=== PATIENT | male | born 1955 | race Caucasian/White ===

== ENCOUNTER 2023-06-20 14:19 | Outpatient (CLI) | payer MEDICARE, OTHER, SELFPAY ==
[2023-06-20 14:30] LABS: Basophils Absolute Auto 0.1 K/mm3 (0.0-0.1); Basophils Percent Auto 0.7 % (0.2-1.2); Eosinophils Absolute Auto 0.4 K/mm3 (0-0.3); Hematocrit 50.5 % (42.0-52.0); Immature Granulocyte Absolute 0.04 K/mm3 (0.00-0.031); Immature Granulocyte Percent A 0.5 % (0-0.5); Lymphocytes Absolute Auto 1.75 K/mm3 (0.9-3.2); Lymphocytes Percent Auto 20.1 % (18.3-44.2); Mean Corpuscular HGB Conc 33.7 g/dl (32-36); Mean Corpuscular Hemoglobin 31.7 pg (26-34); Mean Corpuscular Volume 94.2 fl (80-100); Mean Platelet Volume 8.6 fl (7.4-10.4); Monocytes Absolute Auto 0.8 K/mm3 (0.1-0.6); Monocytes Percent Auto 8.7 % (2.6-8.5); Neutrophils Absolute Auto 5.7 K/mm3 (1.3-6.7); Platelet Count Result 300 k/mm3 (150-375); Red Blood Count 5.36 M/mm3 (4.6-6.20); Red Cell Distribution Width 13.3 % (11.5-14.5); White Blood Count 8.7 K/mm3 (4.5-10.0)
== END 2023-06-20 14:20 | disposition home or self-care (01) ==
PROVIDERS: Visit Provider Internal Medicine Hematology & Oncology
DX: D75.1 Secondary polycythemia (principal)
CPT/HCPCS: 36415; 85025

== ENCOUNTER 2024-04-02 14:21 | Outpatient (CLI) | payer MEDICARE, OTHER, SELFPAY ==
[2024-04-02 14:34] LABS: Basophils Absolute Auto 0.1 K/mm3 (0.0-0.1); Basophils Percent Auto 0.9 % (0.2-1.2); Eosinophils Absolute Auto 0.3 K/mm3 (0-0.3); Eosinophils Percent Auto 4.1 % (0-4.4); Hematocrit 49.3 % (42.0-52.0); Hemoglobin 16.5 g/dL (14.0-18.0); Immature Granulocyte Absolute 0.03 K/mm3 (0.00-0.031); Immature Granulocyte Percent A 0.4 % (0-0.5); Lymphocytes Absolute Auto 1.84 K/mm3 (0.9-3.2); Lymphocytes Percent Auto 23.3 % (18.3-44.2); Mean Corpuscular HGB Conc 33.5 g/dl (32-36); Mean Corpuscular Hemoglobin 31.7 pg (26-34); Mean Corpuscular Volume 94.6 fl (80-100); Mean Platelet Volume 8.7 fl (7.4-10.4); Monocytes Absolute Auto 0.6 K/mm3 (0.1-0.6); Monocytes Percent Auto 7.2 % (2.6-8.5); Neutrophils Absolute Auto 5.1 K/mm3 (1.3-6.7); Neutrophils Percent Auto 64.1 % (45.5-73.1); Platelet Count Result 271 k/mm3 (150-375); Red Blood Count 5.21 M/mm3 (4.6-6.20); Red Cell Distribution Width 13.6 % (11.5-14.5); White Blood Count 7.9 K/mm3 (4.5-10.0)
== END 2024-04-02 14:22 | disposition home or self-care (01) ==
LOC: ANHLAB 14:25
PROVIDERS: Visit Provider Internal Medicine Hematology & Oncology
DX: D75.1 Secondary polycythemia (principal)
CPT/HCPCS: 36415; 85025

== ENCOUNTER 2024-10-06 14:00 | Outpatient (CLI) | payer MEDICARE, OTHER, SELFPAY ==
[2024-10-06 14:41] LABS: Basophils Absolute Auto 0.1 K/mm3 (0.0-0.1); Basophils Percent Auto 0.7 % (0.2-1.2); Eosinophils Absolute Auto 0.3 K/mm3 (0-0.3); Hematocrit 51.6 % (42.0-52.0); Immature Granulocyte Absolute 0.03 K/mm3 (0.00-0.031); Immature Granulocyte Percent A 0.4 % (0-0.5); Lymphocytes Absolute Auto 1.76 K/mm3 (0.9-3.2); Mean Corpuscular HGB Conc 32.9 g/dl (32-36); Mean Corpuscular Hemoglobin 31.1 pg (26-34); Mean Corpuscular Volume 94.3 fl (80-100); Mean Platelet Volume 8.5 fl (7.4-10.4); Monocytes Absolute Auto 0.7 K/mm3 (0.1-0.6); Monocytes Percent Auto 8.3 % (2.6-8.5); Neutrophils Absolute Auto 5.6 K/mm3 (1.3-6.7); Neutrophils Percent Auto 66.6 % (45.5-73.1); Platelet Count Result 257 k/mm3 (150-375); Red Blood Count 5.47 M/mm3 (4.6-6.20); Red Cell Distribution Width 13.8 % (11.5-14.5); White Blood Count 8.4 K/mm3 (4.5-10.0)
== END 2024-10-06 14:01 | disposition home or self-care (01) ==
LOC: ANHLAB 14:01
PROVIDERS: Visit Provider Internal Medicine Hematology & Oncology
DX: D75.1 Secondary polycythemia (principal)
CPT/HCPCS: 36415; 85025

== ENCOUNTER 2025-01-06 14:51 | Outpatient (CLI) | payer MEDICARE, OTHER, SELFPAY ==
[2025-01-06 15:01] LABS: Hemoglobin 17.3 g/dL (14.0-18.0); Mean Corpuscular HGB Conc 33.3 g/dl (32-36); Mean Corpuscular Hemoglobin 31.3 pg (26-34); Mean Corpuscular Volume 94.2 fl (80-100); Mean Platelet Volume 8.5 fl (7.4-10.4); Platelet Count Result 261 k/mm3 (150-375); Red Blood Count 5.52 M/mm3 (4.6-6.20); Red Cell Distribution Width 13.7 % (11.5-14.5); White Blood Count 7.4 K/mm3 (4.5-10.0)
--- OUTSIDE RECORDS SUMMARY | 2025-01-06 15:59 | XMS_ITS | Continuity of Care Document ---
Author Name [facility] Organization [facility] Care Team Providers Care Solderer Furnace Name Role Phone [facility] Unavailable Unavailable Problems Combined list of problems from [facility] and [facility] facilities. It does not include entries that were removed or entered in error. Problem Status Onset Date Problem Type Date of Resolution Comments Source ACCRETIONS ON TEETH Active Condition [facility] Fitting and Adjustment of Orthopedic Devices (ICD-9-CM V53.7) Active Condition [facility] Sensorineural hearing loss of bilateral ears Active Condition [facility] Diagnosis: ICD-10-CM H91.93 Unspecified hearing loss, bilateral Active Diagnosis [facility] Diagnosis: ICD-10-CM H90.3 Sensorineural hearing loss, bilateral Active Diagnosis [facility] Medications Combined list of outpatient medications from [facility] and [facility] facilities.Medications provided include 1) outpatient medications from the last 15 months, and 2) patient-reported medications. Medication Details Route Status Patient Instructions Prescription Expires Prescription Number Last Dispense Date Ordering Provider Order Date Order Qty Source alcohol prep pad [100EA] See Instruct mesha, # 200 EA, 3 total refill(s ), Hard Stop Ordered 10/15/2025 5 2024 200.0 Ambulat ory Pharmac y aspirin EC 81 mg tablet 81 mg, Oral, Daily, # 90 EA, 1 total refill(s ), Hard Stop Oral (given by mouth) Discont inued 06/02/2024 4 2023 90.0 Ambulat ory Pharmac y aspirin EC 81 mg tablet See Instruct mesha, # 90 EA, 1 total refill(s ), Hard Stop Ordered 10/29/2025 5 2024 90.0 Ambulat ory Pharmac y aspirin EC 81 mg tablet 81 mg, Oral, Daily, # 90 EA, 1 total refill(s ), Hard Stop Oral (given by mouth) Ordered 06/02/2025 4 2023 90.0 Ambulat ory Pharmac y aspirin EC 81 mg tablet 81 mg, Oral, Daily, # 90 EA, 1 total refill(s ), Hard Stop Oral (given by mouth) Discont inued 06/02/2024 3 2023 90.0 Ambulat ory Pharmac y cetirizine 10 mg tablet See Instruct ions, # 90 EA, 3 total refill(s ), Hard Stop Complet ed 12/12/2024 4 2024 90.0 Ambulat ory Pharmac y cetirizine 10 mg tablet See Instruct ions, # 90 EA, 3 total refill(s ), Hard Stop Ordered 10/29/2025 5 2024 90.0 Ambulat ory Pharmac y cetirizine 10 mg tablet 10 mg, Oral, Daily, # 90 EA, 1 total refill(s ), Hard Stop Oral (given by mouth) Complet ed 06/06/2024 3 2023 90.0 Ambulat ory Pharmac y Cipro HC 0.2%-1% ear drops (suspension ) [10mL] See Instruct ions, # 10 mL, 1 total refill(s ), Acute Complet ed 02/07/2024 3 2023 10.0 Ambulat ory Pharmac y citalopram 20 mg tablet See Instruct ions, # 90 EA, 3 total refill(s ), Acute Complet ed 02/07/2024 4 2023 90.0 Ambulat ory Pharmac y citalopram 20 mg tablet See Instruct ions, # 90 EA, 3 total refill(s ), Hard Stop Ordered 10/29/2025 5 2024 90.0 Ambulat ory Pharmac y citalopram 20 mg tablet See Instruct ions, # 90 EA, 3 total refill(s ), Hard Stop Complet ed 12/12/2024 4 2024 90.0 Ambulat ory Pharmac y dicyclomine 10 mg capsule 10 mg, Oral, BID, # 180 EA, 3 total refill(s ), Hard Stop Oral (given by mouth) Ordered 02/12/2025 5 2024 180.0 Ambulat ory Pharmac y dicyclomine 10 mg capsule See Instruct ions, # 180 EA, 1 total refill(s ), Acute Complet ed 10/04/2023 3 2023 180.0 Ambulat ory Pharmac y dicyclomine 10 mg capsule See Instruct ions, 0, # 180 EA, 1 total refill(s ), Hard Stop Complet ed 06/06/2024 4 2023 180.0 Ambulat ory Pharmac y doxycycline hyclate 100 mg capsule See Instruct ions, Oral, # 28 EA, 0 total refill(s ), Hard Stop Oral (given by mouth) Complet ed 11/13/2024 5 2024 28.0 Ambulat ory Pharmac y fenofibrate 54 mg tablet See Instruct ions, # 90 EA, 2 total refill(s ), Acute Complet ed 10/04/2023 3 2023 90.0 Ambulat ory Pharmac y fenofibrate 54 mg tablet See Instruct ions, # 90 EA, 1 total refill(s ), Hard Stop Ordered 10/29/2025 5 2024 90.0 Ambulat ory Pharmac y fenofibrate 54 mg tablet 54 mg, Oral, Daily, # 90 EA, 1 total refill(s ), Hard Stop Oral (given by mouth) Ordered 06/02/2025 4 2023 90.0 Ambulat ory Pharmac y fenofibrate 54 mg tablet See Instruct ions, # 90 EA, 1 total refill(s ), Hard Stop Discont inued 06/02/2024 4 2023 90.0 Ambulat ory Pharmac y ferrous sulfate 325 mg tablet See Instruct ions, # 90 EA, 3 total refill(s ), Hard Stop Complet ed 12/12/2024 4 2024 90.0 Ambulat ory Pharmac y ferrous sulfate 325 mg tablet See Instruct ions, # 90 EA, 3 total refill(s ), Acute Complet ed 12/17/2023 3 2023 90.0 Ambulat ory Pharmac y ferrous sulfate 325 mg tablet See Instruct ions, # 90 EA, 0 total refill(s ), Soft Stop Ordered 5 2024 90.0 Ambulat ory Pharmac y Freestyle 28g lancets [100EA] See Instruct ions, # 200 EA, 3 total refill(s ), Hard Stop Ordered 10/15/2025 5 2024 200.0 Ambulat ory Pharmac y Freestyle [place] Lite Monitor See Instruct ions, # 1 EA, 0 total refill(s ), Hard Stop Ordered 10/15/2025 5 2024 1.0 Ambulat ory Pharmac y freestyle lite (glucose) test strip [50EA] See Instruct ions, # 200 EA, 3 total refill(s ), Hard Stop Ordered 10/15/2025 5 2024 200.0 Ambulat ory Pharmac y gabapentin 300 mg capsule 300 mg, 0, # 90 EA, 2 total refill(s ), Hard Stop Discont inued 03/18/2024 4 2023 90.0 Ambulat ory Pharmac y gabapentin 300 mg capsule See Instruct ions, Oral, 0, # 180 EA, 3 total refill(s ), Hard Stop Oral (given by mouth) Ordered 02/12/2025 5 2024 180.0 Ambulat ory Pharmac y gabapentin 300 mg capsule See Instruct ions, # 90 EA, 2 total refill(s ), Acute Complet ed 12/17/2023 3 2023 90.0 Ambulat ory Pharmac y glucose test strip (freestyle lite) USE NEEDED TO CHECK BLOOD SUGAR, # 100 EA, 3 total refill(s ), Acute Complet ed 10/04/2023 3 2023 100.0 Ambulat ory Pharmac y hydrochloro thiazide-lo sartan 25 mg-100 mg tablet See Instruct ions, # 90 EA, 3 total refill(s ), Hard Stop Complet ed 12/03/2024 4 2024 90.0 Ambulat ory Pharmac y hydrochloro thiazide-lo sartan 25 mg-100 mg tablet See Instruct ions, # 90 EA, 3 total refill(s ), Acute Complet ed 10/04/2023 4 2023 90.0 Ambulat ory Pharmac y hydrochloro thiazide-lo sartan 25 mg-100 mg tablet See Instruct ions, # 90 EA, 3 total refill(s ), Hard Stop Ordered 10/29/2025 5 2024 90.0 Ambulat ory Pharmac y hydrOXYzine hydrochlori de 25 mg tablet See Instruct ions, # 30 EA, 3 total refill(s ), Hard Stop Ordered 10/29/2025 5 2024 30.0 Ambulat ory Pharmac y isosorbide mononitrate ER 30 mg/24 hour tablet 30 mg, Oral, Daily, # 90 EA, 0 total refill(s ), Soft Stop Oral (given by mouth) Ordered 5 2024 90.0 Ambulat ory Pharmac y Jatenzo 237 mg capsule 237 mg, Oral, BID, # 180 EA, 1 total refill(s ), Hard Stop Oral (given by mouth) Discont inued 09/05/2024 4 2023 180.0 Ambulat ory Pharmac y Jatenzo 237 mg capsule 237 mg, Oral, BID, # 180 EA, 1 total refill(s ), Hard Stop Oral (given by mouth) Discont inued 12/18/2024 5 2024 180.0 Ambulat ory Pharmac y Jatenzo 237 mg capsule 237 mg, Oral, BID, # 180 EA, 0 total refill(s ), Hard Stop Oral (given by mouth) Discont inued 12/28/2023 4 2023 180.0 Ambulat ory Pharmac y Jatenzo 237 mg capsule 237 mg, Oral, BID, # 60 EA, 2 total refill(s ), Hard Stop Oral (given by mouth) Discont inued 03/25/2024 4 2023 60.0 Ambulat ory Pharmac y ketoconazol e 2% cream [60g] See Instruct ions, # 60 g, 11 total refill(s ), Hard Stop Complet ed 10/10/2024 4 2024 60.0 Ambulat ory Pharmac y levothyroxi ne (Synthroid) 100 mcg tablet See Instruct ions, # 90 EA, 3 total refill(s ), Hard Stop, WADE Ordered 10/14/2025 5 2024 90.0 Ambulat ory Pharmac y levothyroxi ne (Synthroid) 100 mcg tablet See Instruct ions, # 90 EA, 3 total refill(s ), Hard Stop, WADE Discont inued 10/15/2024 5 2024 90.0 Ambulat ory Pharmac y levothyroxi ne (Synthroid) 100 mcg tablet See dose instruct ions in comments , # 90 EA, 3 total refill(s ), Acute Complet ed 10/04/2023 4 2023 90.0 Ambulat ory Pharmac y meclizine 25 mg chew tablet See Instruct ions, # 90 EA, 0 total refill(s ), Hard Stop Complet ed 10/01/2024 4 2024 90.0 Ambulat ory Pharmac y meclizine 25 mg chew tablet See Instruct ions, # 30 EA, 5 total refill(s ), Hard Stop Ordered 02/12/2025 4 2023 30.0 Ambulat ory Pharmac y metFORMIN XR 500 mg/24 hour tablet See Instruct ions, # 180 EA, 1 total refill(s ), Acute Complet ed 10/04/2023 3 2023 180.0 Ambulat ory Pharmac y metFORMIN XR 500 mg/24 hour tablet 500 mg, Oral, BID, # 180 EA, 1 total refill(s ), Hard Stop Oral (given by mouth) Discont inued 06/24/2024 4 2023 180.0 Ambulat ory Pharmac y metFORMIN XR 500 mg/24 hour tablet 500 mg, Oral, BID, # 180 EA, 1 total refill(s ), Hard Stop Oral (given by mouth) Ordered 06/24/2025 4 2023 180.0 Ambulat ory Pharmac y metFORMIN XR 500 mg/24 hour tablet 500 mg, Oral, BID, # 180 EA, 1 total refill(s ), Hard Stop Oral (given by mouth) Complet ed 06/06/2024 4 2023 180.0 Ambulat ory Pharmac y metoprolol succinate 50 mg oral tablet, extended release TAKE ONE TABLET DAILY, # 90 EA, 0 total refill(s ), Acute Complet ed 03/05/20232022 90.0 Ambulat ory Pharmac y metoprolol succinate ER 50 mg/24 hour tablet 50 mg, Oral, Daily, # 90 EA, 3 total refill(s ), Hard Stop Oral (given by mouth) Ordered 02/12/2025 5 2024 90.0 Ambulat ory Pharmac y metoprolol succinate ER 50 mg/24 hour tablet See Instruct ions, # 90 EA, 3 total refill(s ), Hard Stop Complet ed 03/13/2024 4 2023 90.0 Ambulat ory Pharmac y metoprolol succinate ER 50 mg/24 hour tablet 50 mg, Oral, Daily, # 90 EA, 1 total refill(s ), Hard Stop Oral (given by mouth) Complet ed 06/06/2024 4 2023 90.0 Ambulat ory Pharmac y Mounjaro 10 mg/0.5 mL inj-pen [4pens/2mL] See Instruct ions, # 2 mL, 5 total refill(s ), Hard Stop, WADE Ordered 10/14/2025 5 2024 2.0 Ambulat ory Pharmac y Mounjaro 5 mg/0.5 mL inj-pen [4pens/2mL] See Instruct ions, # 2 mL, 5 total refill(s ), Hard Stop Discont inued 09/05/2024 4 2023 2.0 Ambulat ory Pharmac y Mounjaro 5 mg/0.5 mL inj-pen [4pens/2mL] See Instruct ions, # 2 mL, 5 total refill(s ), Hard Stop Discont inued 10/15/2024 5 2024 2.0 Ambulat ory Pharmac y nystatin 100,000 units/g topical powder APPLY TOPICALL Y FOUR TIMES A DAY DIRECTED , # 60 g, 11 total refill(s ), Acute Complet ed 02/07/2024 3 2023 60.0 Ambulat ory Pharmac y oxymetazoli ne 0.05% nasal spray [30mL] See Instruct ions, # 30 mL, 0 total refill(s ), Hard Stop Complet ed 11/07/2024 5 2024 30.0 Ambulat ory Pharmac y pantoprazol e EC 40 mg tablet See Instruct ions, # 90 EA, 3 total refill(s ), Hard Stop Complet ed 08/12/2024 4 2023 90.0 Ambulat ory Pharmac y pantoprazol e EC 40 mg tablet See Instruct ions, # 180 EA, 1 total refill(s ), Acute Complet ed 11/02/2023 3 2023 180.0 Ambulat ory Pharmac y pantoprazol e EC 40 mg tablet 40 mg, Oral, BID, # 180 EA, 3 total refill(s ), Hard Stop Oral (given by mouth) Ordered 10/29/2025 5 2024 180.0 Ambulat ory Pharmac y pantoprazol e EC 40 mg tablet 40 mg, Oral, BID, # 180 EA, 3 total refill(s ), Hard Stop Oral (given by mouth) Discont inued 12/18/2024 4 2024 180.0 Ambulat ory Pharmac y rOPINIRole 2 mg tablet See Instruct ions, # 90 EA, 1 total refill(s ), Acute Complet ed 10/04/2023 3 2023 90.0 Ambulat ory Pharmac y rOPINIRole 2 mg tablet See Instruct ions, # 90 EA, 1 total refill(s ), Hard Stop Complet ed 12/12/20242024 90.0 Ambulat ory Pharmac y rOPINIRole 2 mg tablet See Instruct ions, # 90 EA, 3 total refill(s ), Hard Stop Ordered 02/12/2025 5 2024 90.0 Ambulat ory Pharmac y rOPINIRole 2 mg tablet See Instruct ions, 0, # 90 EA, 1 total refill(s ), Hard Stop Complet ed 06/06/2024 4 2023 90.0 Ambulat ory Pharmac y simvastatin 20 mg tablet See Instruct ions, # 90 EA, 2 total refill(s ), Hard Stop Complet ed 12/12/2024 4 2024 90.0 Ambulat ory Pharmac y simvastatin 20 mg tablet See Instruct ions, # 90 EA, 2 total refill(s ), Hard Stop Complet ed 06/10/2024 4 2023 90.0 Ambulat ory Pharmac y simvastatin 20 mg tablet See Instruct ions, # 90 EA, 2 total refill(s ), Hard Stop Ordered 10/29/2025 5 2024 90.0 Ambulat ory Pharmac y sotalol 80 mg tablet See Instruct ions, # 180 EA, 3 total refill(s ), Hard Stop Complet ed 03/13/2024 4 2023 180.0 Ambulat ory Pharmac y sotalol 80 mg tablet 80 mg, Oral, BID, # 180 EA, 3 total refill(s ), Hard Stop Oral (given by mouth) Ordered 03/20/2025 5 2024 180.0 Ambulat ory Pharmac y testosteron e 237 mg capsule 237 mg, Oral, BID, # 180 EA, 1 total refill(s ), Soft Stop Oral (given by mouth) Ordered 5 2024 180.0 Ambulat ory Pharmac y triamcinolo ne 0.1% cream [15g] See Instruct ions, # 90 g, 3 total refill(s ), Hard Stop Complet ed 10/10/2024 4 2024 90.0 Ambulat ory Pharmac y triamcinolo ne 0.5% cream [15g] See Instruct ions, # 90 g, 3 total refill(s ), Hard Stop Complet ed 10/10/2024 4 2024 90.0 Ambulat ory Pharmac y Trulicity Pen 1.5 mg/0.5 mL [4EA=2mL] See Instruct ions, # 2 mL, 5 total refill(s ), Hard Stop Complet ed 03/19/2024 3 2023 2.0 Ambulat ory Pharmac y Trulicity Pen 1.5 mg/0.5 mL [4EA=2mL] See Instruct ions, # 2 mL, 3 total refill(s ), Hard Stop Notes: refriger ate Discont inued 09/05/2024 4 2023 2.0 Ambulat ory Pharmac y Trulicity Pen 1.5 mg/0.5 mL [4EA=2mL] See Instruct ions, # 6 mL, 1 total refill(s ), Hard Stop Complet ed 04/02/2024 4 2023 6.0 Ambulat ory Pharmac y Allergies, Adverse Reactions, Alerts Combined list of allergies from [facility] and [facility] facilities. It does not include entries that were removed or entered in error. Substance Category Reaction Severity Reaction type Status Date Reported Comments Source erythromycin Propensity to adverse reactions to drug Unknown Active Reaction( s): Unknown; Note: RASH Unknown Organizat ion penicillins Propensity to adverse reactions to drug Unknown Active Reaction( s): Unknown; Note: RASH Unknown Organizat ion Surgical Tape Allergy to substance Urticaria (Hives) Severe Active Ambulator y Pharmacy Immunizations Combined list of available immunizations from the Department of Defense and Veterans Affairs facilities. 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 Status Comments Source COVID Vaccine Pfizer 2020 Shay robledo Arm [id number] PFIZER complet ed COVID Vaccine Pfizer 08/12/21 Given Ambulat ory Pharmac y zoster vaccine, inactivated 2020 zzLef t Arm [id number] GlaxoSmithKli ne complet ed zoster vaccine, inactivat ed 10/14/20 Given Ambulat ory Pharmac y influenza, injectable, quadrivalent- pf 2020 zzLef t Arm [id number] 150 Seqirus complet ed influenza , injectabl e, quadrival ent-pf 10/14/20 Given Ambulat ory Pharmac y zoster vaccine, inactivated 2019 zzLef t Arm [id number] GlaxoSmithKli [employer] complet ed zoster vaccine, inactivat ed 12/12/19 Given Ambulat ory Pharmac y influenza, injectable, quadrivalent- pf 2018 zzLef t Arm [id number] 150 Seqirus complet ed influenza , injectabl e, quadrival ent-pf 09/01/19 Given Ambulat ory Pharmac y influenza, injectable, quadrivalent- pf 2017 zzLef t Arm [id number] 150 [employer]irus complet ed influenza , injectabl e, quadrival ent-pf 06/29/18 Given Ambulat ory Pharmac y tetanus, diphtheria, acellular pertu is 2017 zzLef t Arm [id number] GlaxoSmithK[employer] complet ed tetanus, diphtheri a, acellular pertussis 12/03/17 Given Ambulat ory Pharmac y zoster vaccine live 2015 zzLef t Arm [id number] [employer] complet ed zoster vaccine live 08/02/16 Given Ambulat ory Pharmac y influenza, seasonal, injectable-pf 2015 zzLef t Arm [id number] 140 [employer] complet ed influenza , seasonal, injectabl e-pf 08/02/16 Given Ambulat ory Pharmac y influenza, injectable, quadrivalent- pf 2014 zzLef t Arm [id number] 150 GlaxoSmithK[employer] complet ed influenza , injectabl e, quadrival ent-pf 09/10/15 Given Ambulat ory Pharmac y influenza, injectable, quadrivalent 2013 zzLef t Arm [id number] [employer] complet ed influenza , injectabl e, quadrival ent 07/17/14 Given Ambulat ory Pharmac y influenza, seasonal, injectable 2012 zzLef t Arm [id number] 141 sanofi pasteur complet ed influenza , seasonal, injectabl e 06/18/13 Given Ambulat ory Pharmac y influenza, seasonal, injectable-pf [facility] [id number] 140 sanofi pasteur complet ed influenza , seasonal, injectabl e-pf 07/31/12 Given Ambulat ory Pharmac y pneumococcal polysaccharid e, 23 valent [id number] [employer] complet ed pneumococ patria polysacch aride, 23 valent 07/18/11 Given Ambulat ory Pharmac y influenza, seasonal, injectable [facility] [id number] 141 sanofi pasteur complet ed influenza , seasonal, injectabl e 07/18/11 Given Ambulat ory Pharmac y influenza virus vaccine,split 2009 [facility] [id number] [employer] complet ed influenza virus vaccine,s plit 07/20/10 Given Ambulat ory Pharmac y influenza virus vaccine,split 2007 [facility] [id number] 15 sanofi pasteur complet ed influenza virus vaccine,s plit 09/08/08 Given Ambulat ory Pharmac y influenza virus vaccine,split [facility] [id number] 15 sanofi pasteur complet ed influenza virus vaccine,s plit 08/30/07 Given Ambulat ory Pharmac y tetanus, diphtheria, acellular pertu is 2006 [facility] [id number] 115 sanofi pasteur complet ed tetanus, diphtheri a, acellular pertussis 07/02/07 Given Ambulat ory Pharmac y influenza virus vaccine,split 2004 [facility] [id number] 15 sanofi pasteur complet ed influenza virus vaccine,s plit 08/12/05 Given Ambulat ory Pharmac y influenza virus vaccine,split 2004 [facility] [id number] 15 sanofi pasteur complet ed influenza virus vaccine,s plit 08/09/05 Given Ambulat ory Pharmac y influenza virus vaccine,split 2004 [facility] [id number] 15 sanofi pasteur complet ed influenza virus vaccine,s plit 10/12/04 Given Ambulat ory Pharmac y influenza virus vaccine, whole virus 1999 [id number] 16 [facility] complet ed influenza virus vaccine, whole virus 10/14/99 Given Ambulat ory Pharmac y influenza virus vaccine, whole virus [id number] [facility] complet ed influenza virus vaccine, whole virus 07/26/98 Given Ambulat ory Pharmac y influenza virus vaccine, whole virus 1996 [id number] [facility] complet ed influenza virus vaccine, whole virus 08/12/97 Given Ambulat ory Pharmac y hepatitis A adult vaccine 1996 [id number] [facility] complet ed hepatitis A adult vaccine 02/13/97 Given Ambulat ory Pharmac y hepatitis A adult vaccine 1995 52 complet ed hepatitis A adult vaccine 07/16/96 Given Ambulat ory Pharmac y tetanus-dipht h toxoids (Td) adult/adol 1995 09 complet ed tetanus-d iphth toxoids (Td) adult/ado l 01/28/96 Given Ambulat ory Pharmac y poliovirus vaccine, live, oral 1992 02 complet ed polioviru s vaccine, live, oral 11/22/92 Given Ambulat ory Pharmac y typhoid, parenteral, AKD 1989 53 complet ed typhoid, parentera l, AKD 10/25/89 Given Ambulat ory Pharmac y yellow fever vaccine 1984 37 complet ed yellow fever vaccine 05/25/85 Given Ambulat ory Pharmac y measles/mumps /rubella virus vaccine 1982 03 complet ed measles/m umps/rube lla virus vaccine 11/22/82 Given Ambulat ory Pharmac y vaccinia (smallpox) vaccine 1980 75 complet ed vaccinia (smallpox ) vaccine 12/23/80 Given Ambulat ory Pharmac y Results Combined list of recent chemistry, hematology and other laboratory results from [facility] and [facility], ranging from 15 months to all on record, depending upon the facility. Order Name Results Value Reference Range Date Interpretation Specimen Comments Source Hematology Neutrophil % Auto 61.9 % 46.0 - 77.0 03/21 N 0055A-[address] [place] [address] Hematology Neutro Absolute 4.3 x10^3/ mcL 2.0 - 7.0103 03/21 N 0055A-[address] [place] [address] Hematology Lymphocyte % Auto 23.1 % 20.0 - 40.0 03/[address] [place] [address] Hematology Eosinophil % Auto 6 % 0 - 5 03/[address] [place] [address] Hematology Monocyte % Auto 8 % 1 - 12 03/[address] [place] [address] Hematology [place] Absolute 0.6 x10^3/ mcL 0.2 - 0.8103 03/[address] [place] [address] Hematology Lymph Absolute 1.6 x10^3/ mcL 1.2 - 4.0103 03/[address] [place] [address] Hematology Eos Absolute 0.4 x10^3/ mcL 0.0 - 0.7103 03/[address] [place] [address] Hematology Basophil % Auto 0.4 % 0.0 - 2.5 03/[address] [place] [address] Hematology Baso Absolute 0.0 x10^3/ mcL 0.0 - 0.1103 03/[address] [place] [address] Chemistry Testosteron e Total 164.0 ng/dL 193.0 - 740.0 03/21 L [id number]-[id number] [facility] Chemistry Free Testosteron e Direct LC 6.5 pg/mL 03/21 L Result Comment: Performed At: [facility] [id number] Drew Linder MD Ph:[phone] [address] [place] [address] Chemistry Prolactin.L C 9.7 ng/mL 03/21 Result Comment: Performed At: [address] [id number] Osmar Lee PhD Ph:[phone] [address] [place] [address] Chemistry Triglycerid es 182 mg/dL 7 - 149 03/21 H Interpretive Data: AGES 0-9: Desirable: < 75 mg/dL Borderline High: 75-99 mg/dL High: >/= 100 mg/dL AGES 10-19: Desirable: < 90 mg/dL Borderline High: 90-129 mg/dL High: >/= 130 mg/dL ADULTS: Desirable: < 150 mg/dL Borderline High: 150-199 mg/dL High: >/= 240 mg/dL Very High: >/= 500 mg/dL [address] [place] [address] Chemistry LDL/HDL 2 03/[address] [place] [address] Chemistry LDL 82 mg/dL 100 - 130 03/21 L Interpretive Data: AGES 0-19: Desirable: < 110 mg/dL Borderline High: 110-129 mg/dL High: >/= 130 mg/dL ADULTS: Desirable: <100 mg/dL Near/above optimal: 100-130 mg/dL Borderline High: 131-159 mg/dL High: 160-189 mg/dL Very High: 190 mg/dL [address] [place] [address] Chemistry HDL Cholesterol 40 mg/dL 40 - 59 03/21 N Interpretive Data: HDL (HIGH DENSITY LIPOPROTEIN) : ADULTS: Low: < 40 mg/dL High: >/= 60 mg/dL AGES 0 -19: Low: < 40 mg/dL Borderline Low: 40 - 45 mg/dL Acceptable: > 45 mg/dL [address] [place] [address] Chemistry Cholesterol Total 141 mg/dL 03/21 N Interpretive Data: According to the [place] [employer]: AGES 0-19: Desirable: < 170 mg/dL Borderline High: 170-199 mg/dL High Blood Cholesterol: >/= 200 mg/dL ADULTS: Desirable < 200 mg/dL Borderline High: 200-239 mg/dL High Blood Cholesterol: >/= 240 mg/dL [address] [place] [address] Chemistry Chol/HDL 4 mg/dL 03/[address] [place] [address] Chemistry TSH 2.790 mIU/L 0.270 - 4.200 03/21 N Interpretive Data: Recommend: TPO/Thyroper oxidase Antibody when TSH result is > 4.2 uIU/mL [id number] Chemistry T4 Free Direct.LC 1.10 ng/dL 03/21 Result Comment: Performed At: [address] [id number] Osmar Lee PhD Ph:[phone] 0055A-[address] [place] [address] Chemistry Protein Total 6.9 g/dL 6.4 - 8.3 03/21 N 0055A-[address] [place] [address] Chemistry ALT 48 U/L 5 - 55 03/21 N 0055A-[address] [place] [address] Chemistry BUN 18 mg/dL 8 - 26 03/21 N 0055A-[address] [place] [address] Chemistry AST 23 U/L 5 - 34 03/21 N 0055A-[address] [place] [address] Chemistry Bilirubin Total 0.4 mg/dL 0.2 - 1.2 03/21 N 0055A-[address] [place] [address] Chemistry Calcium 9.8 mg/dL 8.4 - 10.2 03/21 N 0055A-[address] [place] [address] Chemistry BUN/Creat Ratio 16 mg/dL 12 - 20 03/21 N 0055A-[address] [place] [address] Chemistry Chloride 109 mmol/L 98 - 107 03/21 H 0055A-[address] [place] [address] Chemistry Glucose Lvl 112 mg/dL 74 - 99 03/21 H 0055A-[address] [place] [address] Chemistry Potassium Lvl 4.1 mmol/L 3.5 - 5.1 03/21 N 0055A-[address] [place] [address] Chemistry CO2 23 mmol/L 22 - 29 03/21 N 0055A-[address] [place] [address] Chemistry Creatinine Level 1.10 mg/dL 0.72 - 1.25 03/21 N 0055A-[address] [place] [address] Chemistry Sodium 142 mmol/L 136 - 145 03/21 N 0055A-[address] [place] [address] Chemistry Albumin 3.60 g/dL 3.50 - 5.20 03/21 N 0055A-[address] [place] [address] Chemistry Alk Phos 83 U/L 40 - 150 03/21 N 0055A-[address] [place] [address] Chemistry AGAP 10.00 0.00 - 15.00 03/21 N 0055A-[address] [place] [address] Hematology Hemoglobin 16.0 g/dL 13.0 - 16.3 03/21 N [id number] [place] [address] Hematology MCH 30 pg 28 - 33 03/[address] [place] [address] Hematology Hematocrit 48 % 40 - 49 03/[address] [place] [address] Hematology Platelets 247.0 x10^3/ mcL 150.0 - 450.0103 03/[address] [place] [address] Hematology RBC 5.3 x10^6/ mcL 4.0 - 5.6106 03/[address] [place] [address] Hematology MCHC 33.3 g/dL 33.0 - 36.5 03/[address] [place] [address] Hematology MCV 91 fL 80 - 97 03/[address] [place] [address] Hematology MPV 9.3 fL 7.4 - 10.4 03/[address] [place] [address] Hematology RDW 14.6 % 11.0 - 14.9 03/[address] [place] [address] Hematology WBC 7.0 x10^3/ mcL 4.0 - 11.0103 03/[address] [place] [address] Chemistry Hemoglobin A1c 5.7 % 4.0 - 5.6 03/21 H Interpretive Data: Normal: 4.0 - 5.6% Increased Risk: 5.7 - 6.4% Diabetic Range: 6.5% For patients without diabetes, the normal range for the hemoglobin A1c test is between 4% and 5.6%. Hemoglobin A1c levels between 5.7% and 6.4% indicate increased risk of diabetes, and levels of 6.5% or higher indicate diabetes. Because studies have repeatedly shown that [id number] ol diabetes results in complication s from the disease, the goal for people with diabetes is a hemoglobin A1c less than 7%. The higher the hemoglobin A1c, the higher the risks of developing complication s related to diabetes. If confirmation is needed, consider recalling the patient and ordering Hemoglobin Electrophore sis. [address] [place] [address] Chemistry eAvg Glucose 117 mg/dL 03/[address] [place] [address] Chemistry Ur Microalbumi n 39 mg/gCr 03/21 H Interpretive Data: To minimize intra-indivi dual variation, analysis of three random urine samples collected over the course of a week has also been recommended. [address] [place] [address] Chemistry Ur Creat 220 mg/dL 03/[address] [place] [address] Chemistry Ur Microalb/Ur Creat Ratio 17.7 mg/gCr 03/21 Result Comment: CORRECTED DUE TO UNIT OF MEASURE CONVERSION [address] [place] [address] Chemistry eGFR CKD EPI 74 mL/min /1.73_ m2 03/21 Interpretive Data: Estimated Glomerular Filtration Rate (eGFR) calculated using the 2020 Chronic Kidney Disease-Epid emiology (CKD-EPI) Collaboratio n creatinine equation; units of measure are mL/min/1.73 m2. Results are only valid for adults (>=18 years) whose serum creatinine is in steady state. eGFR calculations are not valid for patients with acute kidney injury and for patients on dialysis. Creatinine-b ased estimates of kidney function may also be inaccurate in patients with reduced creatinine generation due to decreased muscle mass (e.g., malnutrition , severe hypoalbumine juarez, sarcopenia, chronic neuromuscula r disease, amputations, severe heart failure or liver disease) and in patients with increased creatinine generation due to increased muscle mass (e.g., muscle builders, anabolic steroids) or increased dietary intake. CKD is diagnosed based on abnormalitie s of kidney structure or function, present for >3 months, with implications for health and disease. CKD is classified and staged based on cause, eGFR and albuminuria (quantified as urine albumin to creatinine ratio). An eGFR >60 mL/min/1.73 m2 in the absence of increased urine albumin excretion or structural abnormalitie s does not CKD. eGFR provides only an estimate of measured GFR within +/- 30% for most patients. As mentioned, nutritional status and muscle mass, among many factors, may lead to inaccuracy in the estimate. Consider ordering the creatinine-c ystatin C panel if better accuracy is needed for clinical decision-natacha ing. eGFR (mL/min/1.73 m2) CKD stage Interpretati on Normal 60-89 Mild decrease 45-59 Mild to moderate decrease 30-44 Moderate to severe decrease 15-29 Severe decrease <15 Kidney failure [address] [place] [address] Encounters Combined list of: 1) Encounters from Department of [facility] facilities going backup to the last 18 months, not all [place] inpatient encounters are included; 2) Encounters from the [facility] facilities going backup to 280 months. Location Location Details Encounter Type Encounter Number Reason For Visit Attending Provider ADM Date DC Date Status Disposition Source [facility] Outpatient Encounter [id number] 10/16 [facility] HEARING AID EXAM BOTH EARS [id number] Diagnos is: ICD-10- CM H90.3 Sensori neural hearing loss, JUAN A Juárez 06/26 [facility] Outpatient Encounter [id number] 07/10 [facility] Outpatient Encounter [id number] 08/06 [facility] CONFORMITY EVALUATION [id number] Diagnos is: ICD-10- CM H91.93 Unspeci fied hearing loss, baldev DENITA Kirby 08/11 [facility] Procedures Combined list of: 1) Procedures from [facility] facilities going back up to thelast 18 months, not all [place] non-surgical procedures are included; 2) All procedures from the [facility] facilities. Procedure Procedure Type Code Date Perfomer Comments Sourc e No data available for this section Ambulatory P harmacy Assessment and Plan Combined list of future care activities from Department of [facility] and [facility] facilities (e.g., assessment and plan notes, appointments, orders, and referrals). Additional future care activities may be listed in the Plan of Care section. Result Assessment and Plan Date Source Assessment and Plan No data available for this section 01/06/2025 Ambulatory Pharmacy Functional Status Combined list of recent functional and cognitive assessments recorded at [facility] and [facility] (VA).VA Functional [place] Measurement (FIM) Scale: 1 = Total Assistance (Subject = 0% +), 2 = Maximal Assistance (Subject = 25% +), 3 = Moderate Assistance (Subject = 50% +), 4 = Minimal Assistance (Subject = 75% +), 5 = Supervision, 6 = Modified [place] (Device), 7 = Complete [place] (Timely, Safely). Assessment Date/Time Source Assessment Type Assessment Skill Assessment Score Assessment Details No data available for this section
--- OUTSIDE RECORDS SUMMARY | 2025-01-06 15:59 | XMS_ITS | Encounter Summary ---
Author Organization [facility] Facility Care Team Providers Care Catalyst Concentration Operator Name Role Phone Karishma Ghosh MD Primary Care Provider [facility] Primary Care Provider Donna Ochoa DO Primary Care Provider [phone] Tiki Jeff MD Primary Care Provider [phone] Mary Mcdonald MD Primary Care Provider [facility] Primary Care Provider Mary Mcdonald MD Primary Care Provider [facility] Primary Care Provider Mary Mcdonald MD Primary Care Provider Yinka Ivy MD, Angel Aquino Primary Care Provide r Domo Degroot MD Unavailable Anneliese Barrow MD Unavailable Nick Xie MD Unavailable [phone] Liz Gomez OD Unavailable [phone] Encounter Details Date Type Department Care Team (Latest Contact Info) Description 08/08/2018 Orders Only [facility]INCONV ProviderGetachew MD [address] [place] [id number] Social History Tobacco Use Types Packs/Day Years Used Date Smoking Tobacco: Never Sex and Gender Information Value Date Recorded Sex Assigned at Not on file Legal Sex Male 4:45 AM SOLE PAINTER Gender Identity Male 12/21/2020 12:36 PM CDT Sexual Orientation Straight 12/21/2020 12 :36 PM CDT documented as of this encounter Plan of Treatment Not on file documented as of this encounter Procedures Procedure Name Priority Date/Time Associated Diagnosis Comments PROCEDURE - RESULT 08/08/2018 12 :00 AM SOLE PAINTER documented in this encounter Results * PROCEDURE - RESULT (08/08/2018 12:00 AM SOLE PAINTER) Narrative 08/08/2018 12:00 AM SOLE PAINTER Ordered by an unspecified provider. Historical Provider Final Res ult documented in this encounter Visit Diagnoses Not on filedocumented in this encounter Care Teams Catalyst Concentration Operator Relationship Specialty Start Date End Date Karishma Ghosh MD [facility] [place] [address] PCP - General Family Practice 12/13/18 10/12/19 [address] [address] [place] [address] PCP - General 10/13/19 08/22/20 Donna Ochoa DO [facility] [place] [address] PCP - General Family Medicine 08/23/20 12/13/20 Tiki Jeff MD [facility] [place] [address] PCP - General Pulmonary Disease 12/14/20 12/14/20 Mary Mcdonald MD [address] [place] [address] PCP - General Internal Medicine 12/22/20 05/12/21 [address] [address] [place] [address] PCP - General 05/13/21 05/19/21 Mary Mcdonald MD [address] [place] [address] PCP - General Internal Medicine 05/20/21 05/23/21 [address] [address] [place] [address] PCP - General 05/24/21 05/25/21 Mary Mcdonald MD [address] [place] [address] PCP - General 05/26/21 08/10/22 Angel Honeycutt Jr., MD [address] [place] [address] PCP - General Internal Medicine 08/11/22 Domo Degroot MD [address] [place] [address] Referring Physician Cardiovascular Disease 08/11/22 Anneliese Barrow MD [address] [place] [id number] Internal Medicine 08/11/22 Nick Xie MD [address] [address] Referring Physician Hematology 08/11/22 Liz Gomez, SHERRY [address] [place] [address] Optometry 08/13/23 documented as of this encounter
--- OUTSIDE RECORDS SUMMARY | 2025-01-06 16:00 | XMS_ITS | Referral Summary ---
Author Organization [facility] [place] Address [address] [place] [address] Care Team Providers Care Global Account Manager Name Role Phone Yinka Ivy MD, Angel Aquino Primary Care Provide r Domo Degroot MD Unavailable Anneliese Gomez MD Unavailable Nick Xie MD Unavailable [phone] Liz Gomez OD Unavailable [phone] Encounters Date Type Department Care Team Description 10/29/2024 8:30 AM [employer]AT [employer] [facility] Office Visit [facility] [address] [place] [address] [phone] Angel Honeycutt Jr., MD Encounter for Medicare annual wellness exam (Primary Dx); Major depressive disorder, recurrent, mild; Dyslipidemia; Acute rhinitis; Primary hypertension; BRIGIDO (obstructive sleep apnea); Morbid obesity with BMI of 50.0-59.9, adult (HCC); CKD (chronic kidney disease) stage 2, GFR 60-89 ml/min; Class 3 severe obesity due to excess calories with serious comorbidity and body mass index (BMI) of 50.0 to 59.9 in adult ([facility]); Cellulitis of right upper arm; Type 2 diabetes mellitus with stage 2 chronic kidney disease, without long-term current use of insulin ([facility]); Hypertension associated with diabetes ([facility]); Hyperlipidemia associated with type 2 diabetes mellitus (HCC) 10/15/2024 Telephone [facility] [address] [address] Sydnee Hernandez MD 10/14/2024 1:30 PM [facility] Lab [address] [address] Class 3 severe obesity due to excess calories with serious comorbidity and body mass index (BMI) of 50.0 to 59.9 in adult (HCC); Male hypogonadism; Acquired hypothyroidism; Type 2 diabetes mellitus without complication, without long-term current use of insulin (HCC); Hyperlipidemia associated with type 2 diabetes mellitus (HCC); Hypertension associated with diabetes (HCC) 10/14/2024 1:15 PM [employer] Office Visit [facility] [address] [address] Sydnee Hernandez MD Type 2 diabetes mellitus without complication, without long-term current use of insulin (HCC) (Primary Dx); Hyperlipidemia associated with type 2 diabetes mellitus (HCC); Hypertension associated with diabetes (HCC); Male hypogonadism; Acquired hypothyroidism; Class 3 severe obesity due to excess calories with serious comorbidity and body mass index (BMI) of 50.0 to 59.9 in adult (HCC) from Last 3 Months Allergies Active Allergy Reactions Criticality Noted Date Comments Adhes. Zjgn-Cior-Niogmdrehpfi Rash Medium 12/23/2018 Adhesive Tape-Silicones Rash Medium 12/23/2018 Erythromycin Stomach upset Low Cephalexin Rash Medium 06/30/2021 Penicillins Anaphylaxis,Syncope, Unknown High 03/03/2016 Loss of consciousness Reaction(s): Unknown; Note: RASH Sulfa (Sulfonamide Antibiotics) Swelling,Hives,Rash High 07/17/2017 Itching and swelling with hives Medications miscellaneous medical supply miscIndications: Lower extremity edema Use as directed 7 each 2 Active Betapace 80 mg tablet Take 1 tablet (80 mg total) by mouth 2 (two) times a day 180 tablet 3 2 Active lutein 10 mg tablet Take 10 mg by mouth daily 90 tablet 3 3 Active nystatin powderIndication s:Skin yeast infection Apply topically 4 (four) times a day 60 g 11 3 Active triamcinolone (KENALOG) 0.1 % cream 4 Active dicyclomine (BENTYL) 10 mg capsule Take 1 capsule (10 mg total) by mouth 2 (two) times a day 180 capsule 3 4 Active gabapentin (NEURONTIN) 300 mg capsuleIndicatio ns:Restless Legs Syndrome Take 2 capsules (600 mg total) by mouth nightly 180 capsule 3 4 Active rOPINIRole (REQUIP) 2 mg tabletIndication s:RLS (restless legs syndrome) Take 1 tablet (2 mg total) by mouth nightly 90 tablet 3 4 Active metoprolol XL (TOPROL-XL) 50 mg extended release tabletIndication s:Hypertension, unspecified type Take 1 tablet (50 mg total) by mouth daily 90 tablet 3 4 Active fluocinolone in oil (DermOtic) 0.01 % dropsIndications :Otitis Externa Eczema Administer 2-3 drops into each ear daily 20 mL 1 4 Active cholecalciferol (VITAMIN D-3) 2000 unit capsule Take 1 capsule (2,000 Units total) by mouth daily 90 capsule 1 4 Active Mounjaro 10 mg/0.5 mL pen injectorIndicati ons:type 2 diabetes mellitus Inject 10 mg under the skin every 7 days 6 mL 1 5 025 Active Synthroid 100 mcg tabletIndication s:Male hypogonadism Take 1 tablet (100 mcg total) 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 Take 1 tablet in the am 90 tablet 3 5 026 Active blood-glucose meter (FreeStyle Lite Meter) kitIndications:T ype 2 diabetes mellitus without complication, without long-term current use of insulin (HCC) Use to check blood sugar 1 kit 5 Active blood glucose diagnostic stripIndications :Type 2 diabetes mellitus without complication, without long-term current use of insulin (HCC) Check blood sugar 2 times daily 200 strip 3 5 Active lancets miscIndications: Type 2 diabetes mellitus without complication, without long-term current use of insulin (HCC) Use to check blood sugar 2 times daily 200 each 3 5 Active alcohol swabs (Alcohol Pads) pads, medicatedIndicat ions:Type 2 diabetes mellitus without complication, without long-term current use of insulin (HCC) Use as directed 200 each 3 5 Active cetirizine (ZyrTEC) 10 mg tabletIndication s:Acute rhinitis Take 1 tablet (10 mg total) by mouth daily as needed for allergies 90 tablet 3 5 026 Active aspirin 81 mg enteric coated tabletIndication s:BRIGIDO (obstructive sleep apnea) Take 1 tablet (81 mg total) by mouth daily 90 tablet 1 5 Active citalopram (CeleXA) 20 mg tabletIndication s:Major depressive disorder, recurrent, mild Take 1 tablet (20 mg total) by mouth daily 90 tablet 3 5 Active fenofibrate (TRICOR) 54 mg tabletIndication s:Dyslipidemia Take 1 tablet (54 mg total) by mouth daily 90 tablet 1 5 025 Active losartan-hydroch lorothiazide (HYZAAR) 100-25 mg per tabletIndication s:Primary hypertension Take 1 tablet by mouth daily 90 tablet [address] (PROTONIX) 40 mg EC tabletIndication s:Dyslipidemia Take 1 tablet (40 mg total) by mouth 2 (two) times a day 180 tablet 3 5 026 Active simvastatin (ZOCOR) 20 mg tabletIndication s:Dyslipidemia Take 1 tablet (20 mg total) by mouth nightly 90 tablet 2 5 Active hydrOXYzine (ATARAX) 25 mg tabletIndication s:Acute rhinitis Take 1 tablet (25 mg total) by mouth nightly as needed (running nose) 30 tablet 3 5 Active oxymetazoline (AFRIN) 0.05 % nasal sprayIndications :Acute rhinitis Administer 2 sprays into each nostril 2 (two) times a day 30 mL 5 Active testosterone undecanoate (Jatenzo) 237 mg capsuleIndicatio ns:Male hypogonadism Take 237 mg by mouth 2 (two) times a day 180 capsule 1 5 025 Active ferrous sulfate 325 mg (65 mg of elemental iron) tabletIndication s:Iron Deficiency Anemia Take 1 tablet (325 mg total) by mouth daily with breakfast 90 tablet 5 Active ferrous sulfate 325 mg (65 mg of elemental iron) tabletIndication s:Iron Deficiency Anemia Take 1 tablet (325 mg total) by mouth daily with breakfast 90 tablet 3 4 025 Discontin ued(Reord er) testosterone undecanoate (Jatenzo) 237 mg capsuleIndicatio ns:Male hypogonadism Take 237 mg by mouth 2 (two) times a day 180 capsule 1 5 025 Discontin ued(Reord er) Active Problems Problem Noted Date Diagnosed Date CKD (chronic kidney disease) stage 2, GFR 60-89 ml/min 10/29/2024 Assessment & Plan (10/29/2024 10:04 AM FLAT SURF[employer]ER JEWEL): Renally dose medications Monitor only Acquired hypothyroidism 03/18/2024 Assessment & Plan (10/14/2024 1:46 PM FLAT [employer] JEWEL): Chronic, stable Patient currently on Synthroid 100 mcg oral daily Assessment & Plan (03/18/2024 12:40 PM CDT): Chronic, unknown status Patient currently on Synthroid 100 mcg oral daily Recheck thyroid function test and further plans based on it Hyperlipidemia associated with type 2 diabetes teresa albrecht 03/18/2024 Assessment & Plan (10/29/2024 10:05 AM FLAT [employer] JEWEL): Chronic stable Well controlled Continue current prescribed medications zocor at current dose Assessment & Plan (10/14/2024 1:45 PM FLAT [employer] JEWEL): Continue statin therapy Assessment & Plan (03/18/2024 12:40 PM CDT): Continue statin therapy Hypertension associated with diabetes 03/18/2024 Assessment & Plan (10/29/2024 10:05 AM FLAT SURF[employer]ER JEWEL): Chronic stable Well controlled Continue current prescribed medications hyzaar at current dose Assessment & Plan (10/14/2024 1:45 PM FLAT SURF[employer] JEWEL): Chronic, well controlled Continue losartan/hydrochlorothiazide Assessment & Plan (03/18/2024 12:40 PM CDT): Chronic, well controlled Continue losartan/hydrochlorothiazide Morbid obesity with BMI of 50.0-59.9, adult 02/23 Assessment & Plan (10/29/2024 10:04 AM FLAT SURFACER JEWEL): Put on mounjaro Needs to loose significant weight for overal health Assessment & Plan (03/18/2024 12:40 PM CDT): Chronic, above goal, progressively worsening BMI 58 Counseled on diet Increase physical activity as tolerated PLMD (periodic limb movement disorder) Assessment & Plan (10/02/2024 3:13 PM FLAT SURFACER JEWEL): I did inform the patient try taking the Requip 2 mg earlier in the evening time. The patient is going to increase the gabapentin to 600 mg. Assessment & Plan (10/02/2023 3:30 PM FLAT SURF[employer]ER JEWEL): Due to continued and worsening symptoms, I have increased the gabapentin to 600 mg nightly. The patient will continue Requip 2 mg nightly. He will also continue iron supplementation. Arthralgia 12/18/2022 Assessment & Plan (12/18/2022 9:39 AM CDT): I have ordered an iron and ferritin level. Type 2 diabetes mellitus wit h stage 2 chronic kidney disease, without long-term current use of insulin 05/03/2022 Overview (08/11/2022): Last Assessment & Plan: ha1c creeping up. But still well controlled Need diabetic eye exam Foot exam next appt Assessment & Plan (10/29/2024 10:05 AM FLAT SURFACER JEWEL): Follows endocrinology Chronic stable Well controlled Continue current prescribed medications at current dose Assessment & Plan (10/14/2024 1:45 PM FLAT SURFACER JEWEL): Chronic overall improving control Hemoglobin A1c 5.9% Plan to stop metformin XR and increase Mounjaro 10 mg subQ weekly Counseled on diet and exercise Recommend to include weight-bearing exercises Recommend annual dilated eye exam We will try to obtain patient's recent eye exam copy Check labs today Daily foot care Follow-up in 6 months Assessment & Plan (03/18/2024 12:39 PM CDT): Chronic, overall well controlled A1c 6.1% Counseled on diet and exercise Plan to switch Trulicity to Mounjaro 5 mg subQ weekly Continue current dose of metformin Recommend annual dilated eye exam Daily foot care Follow-up in 6 months Assessment & Plan (02/08/2023 9:44 AM CDT): Follows endocrinology Chronic stable Well controlled Continue current prescribed medications at current dose Assessment & Plan (08/11/2022 2:42 PM FLAT SURFACER JEWEL): Chronic stable Well controlled Continue current medications at current dose Assessment & Plan (02/07/2022 5:45 PM CDT): ha1c creeping up. But still well controlled Need diabetic eye exam Foot exam next appt Assessment & Plan (06/30/2021 11:52 AM CDT): ha1c 5.8 today- fantastic Will see if Dr. Gomez agrees with GLP1 Ra to assist with weight loss, stop the bydureon? Assessment & Plan (12/22/2020 3:14 PM CDT): On metformin and bydureon Need prev labwork Seeing eye doc Major depressive disorder, recurrent, mild 02/07 Assessment & Plan (10/29/2024 10:04 AM FLAT SURFACER JEWEL): Chronic stable Well controlled Continue current prescribed medications celexa at current dose Assessment & Plan (02/13/2024 11:12 AM CDT): Chronic stable Well controlled Continue current prescribed medications celexa at current dose Assessment & Plan (08/13/2023 9:54 AM FLAT SURFACER JEWEL): Chronic stable Well controlled Continue current prescribed medications at current dose Assessment & Plan (08/11/2022 2:45 PM FLAT SURFACER JEWEL): Chronic stable Well controlled Continue current medications at current dose Encounter for Medicare annual wellness exam 03/2021 Assessment & Plan (10/29/2024 10:04 AM FLAT SURFACER JEWEL): Reviewed previous labs and diagnostic test results. Chronic medical problems evaluated and management plans discussed with the patient. Prescription medications, supplements, vitamins and immunizations reviewed. Wear seatbelts. Use sunscreen. Discussed healthy diet and disease prevention and controlling portions including alcohol Discussed importance of scheduling recommended screening tests. Discussed importance of regular physical examinations for health maintenance. Discussed importance of a living will, advanced directives and establishing or updating healthcare power of attorney recruiter document and providing our office with a copy. Assessment & Plan (08/13/2023 9:20 AM FLAT SURFACER JEWEL): Reviewed previous labs and diagnostic test results. Chronic medical problems evaluated and management plans discussed with the patient. Prescription medications, supplements, vitamins and immunizations reviewed. Wear seatbelts. Use sunscreen. Discussed healthy diet and disease prevention and controlling portions including alcohol Discussed importance of scheduling recommended screening tests. Discussed importance of regular physical examinations for health maintenance. Discussed importance of a living will, advanced directives and establishing or updating healthcare power of attorney recruiter document and providing our office with a copy. Assessment & Plan (08/11/2022 2:41 PM FLAT SURFACER JEWEL): Reviewed previous labs and diagnostic test results. Chronic medical problems evaluated and management plans discussed with the patient. Prescription medications, supplements, vitamins and immunizations reviewed. Wear seatbelts. Use sunscreen. Discussed healthy diet and disease prevention and controlling portions including alcohol Discussed importance of scheduling recommended screening tests. Discussed importance of regular physical examinations for health maintenance. Discussed importance of a living will, advanced directives and establishing or updating healthcare power of attorney recruiter document and providing our office with a copy. Assessment & Plan (06/30/2021 11:50 AM CDT): Medicare wellness done today cscope due 04/03/2026 Need recent labwork from [facility]- pt states recent psa was normal Foot exam done today Lower extremity edema 06/30/2021 Assessment & Plan (06/30/2021 11:56 AM CDT): Due to weight , varicose veins Two episodes of b/l cellulitis summer Advise custom made compression stockings- [facility] should be able to help with that Would like to add on lasxi to see if this helps too- faxing note to Dr. Degroot to see if he approves starting lasix in regards to pts cardiac hx BRIGIDO (obstructive sleep apnea) 2020 Assessment & Plan (10/29/2024 10:08 AM FLAT SURFACER JEWEL): Still wears CPAP, follows with pulm Assessment & Plan (10/02/2024 3:13 PM FLAT SURFACER JEWEL): The patient continue to wear CPAP at 16 cm water pressure while sleeping. His DME is [employer]. The patient does have two CPAP machines that he does use. Assessment & Plan (10/02/2023 3:31 PM FLAT SURFACER JEWEL): Due to continued symptoms, the patient will continue CPAP at 16 cm water pressure. He does have 2 CPAP machine he alternates between and wears it on a nightly basis. The patient's DME is [employer] Assessment & Plan (06/21/2023 6:06 PM CDT): Patient continue to wear CPAP at 10 cm water pressure while sleeping. His DME is [employer]. Assessment & Plan (02/08/2023 9:47 AM CDT): Still wears CPAP, follows with pulm Assessment & Plan (12/18/2022 9:39 AM CDT): The patient does have two CPAP machines that he does use. The patient continue to wear CPAP at 10 cm water pressure while sleeping. His DME is [employer]. I have sent an order over for new supplies. Assessment & Plan (12/15/2021 8:45 AM CDT): Patient continue to wear CPAP at 10 cm water pressure while sleeping. His DME is [employer]. I will send an order over for new head gear. Assessment & Plan (06/30/2021 11:52 AM CDT): Stable, sees dr. harris Assessment & Plan (12/22/2020 1:26 PM CDT): Cont with dr. harris Assessment & Plan (2020 8:23 AM CDT): The patient continue to wear his CPAP at 17 cm of water pressure while sleeping. His DME is [employer]. If needed due to Medicare requirements the patient will need to complete a nocturnal polysomnogram split night protocol if necessary, no MSLT. History of total knee arthroplasty, left 019 Overview (03/03/2019): January 15, 2019, Saavedra and Nephronaldo legion primary knee dished polyethylene Assessment & Plan (10/19/2019 6:08 PM FLAT SURFACER JEWEL): No complaints. Fell over the holidays. Continue progressive range of motion and strengthening per total knee arthroplasty protocol. Assessment & Plan (04/14/2019 4:08 PM CDT): Continue progressive range of motion strengthening per total knee arthroplasty protocol. Follow up in 6 months for repeat evaluation Assessment & Plan (03/03/2019 9:13 AM CDT): Continue progressive range of motion and strengthening per total knee arthroplasty protocol. Follow up in 6 weeks for repeat evaluation. Return to work on March 05 Assessment & Plan (01/31/2019 9:46 AM CDT): Continue outpatient physical therapy. May discontinue cane when able. Follow up in 1 month for repeat evaluation. Repeat x-rays next visit. Call or return with questions or concerns. Continue progressive range of motion and strengthening per total knee arthroplasty protocol. Class 3 severe obesity due t o excess calories with serious comorbidity and body mass index (BMI) of 50.0 to 59.9 in adult 12/24/2018 Assessment & Plan (10/29/2024 10:08 AM FLAT SURFACER JEWEL): Started on mounjaro Continue to go up Assessment & Plan (10/14/2024 1:45 PM FLAT SURFACER JEWEL): Chronic, slowly improving but still above goal Counseled on diet and exercise Patient on GLP 1 therapy Assessment & Plan (02/13/2024 11:36 AM CDT): Will go up on Trulicity Certainly play role in overall health conditions Assessment & Plan (08/13/2023 9:55 AM FLAT SURFACER JEWEL): With dm2, HTN Continue trulcitiy Assessment & Plan (02/08/2023 9:44 AM CDT): Sees endocrinology Starting trulcity likely soon, pharmacy no longer carries it Assessment & Plan (08/11/2022 2:46 PM FLAT SURFACER JEWEL): On ozempic, monitor weight Assessment & Plan (10/19/2019 6:08 PM FLAT SURFACER JEWEL): For 1 lb lost, 4-6 lb of stress is relieved from the knee. Work on weight loss through diet and exercise. Assessment & Plan (04/14/2019 4:08 PM CDT): Continue weight loss through diet and exercise Assessment & Plan (12/24/2018 1:36 PM CDT): We discussed increased risk of wound complications, early loosening and infection because of size. All questions were answered. Continue with weight loss program low carbohydrate diet Primary osteoarthritis of right knee 06/18/2017 Assessment & Plan (08/23/2020 4:20 PM FLAT SURFACER JEWEL): We discussed the risks, benefits and alternatives of treatment options for osteoarthritis of the knee. From least invasive to most invasive: The only thing to slow the progression of osteoarthritis is weight loss. For every pound lost 4 to 6 pounds of stress is relieved from the knee. Formal physical therapy to help with flexion, extension, mobility and strength. Unloading braces to unload the affected side. The possibility of TENs unit to control pain and swelling. Nonsteroidal anti-inflammatories with the potential of cardiac and GI upset. Steroid and Visco supplement injection. And eventual total knee arthroplasty. After going over the risks, benefits and alternatives gel 1 is injected. Patient understands I will not be here after August 24, 2020. Alternate physician names were given. Patient will follow up on an as-needed basis Assessment & Plan (05/25/2020 3:46 PM CDT): We discussed the risks, benefits and alternatives of treatment options for osteoarthritis of the knee. From least invasive to most invasive: The only thing to slow the progression of osteoarthritis is weight loss. For every pound lost 4 to 6 pounds of stress is relieved from the knee. Formal physical therapy to help with flexion, extension, mobility and strength. Unloading braces to unload the affected side. The possibility of TENs unit to control pain and swelling. Nonsteroidal anti-inflammatories with the potential of cardiac and GI upset. Steroid and Visco supplement injection. And eventual total knee arthroplasty. Patient is considering total knee arthroplasty in November of next year. Will work on weight loss. Assessment & Plan (11/02/2019 6:31 PM FLAT SURFACER JEWEL): We discussed the risks, benefits and alternatives of treatment options for osteoarthritis of the knee. From least invasive to most invasive: The only thing to slow the progression of osteoarthritis is weight loss. For every pound lost 4 to 6 pounds of stress is relieved from the knee. Formal physical therapy to help with flexion, extension, mobility and strength. Unloading braces to unload the affected side. The possibility of TENs unit to control pain and swelling. Nonsteroidal anti-inflammatories with the potential of cardiac and GI upset. Steroid and Visco supplement injection. And eventual total knee arthroplasty. Gel 1 injected today. Follow-up in 3 months. Assessment & Plan (10/19/2019 6:07 PM FLAT SURFACER JEWEL): We discussed the risks, benefits and alternatives of treatment options for osteoarthritis of the knee. From least invasive to most invasive: The only thing to slow the progression of osteoarthritis is weight loss. For every pound lost 4 to 6 pounds of stress is relieved from the knee. Formal physical therapy to help with flexion, extension, mobility and strength. Unloading braces to unload the affected side. The possibility of TENs unit to control pain and swelling. Nonsteroidal anti-inflammatories with the potential of cardiac and GI upset. Steroid and Visco supplement injection. And eventual total knee arthroplasty. Not ready to proceed with any type of surgical intervention at this time. Assessment & Plan (04/14/2019 4:08 PM CDT): Would like to consider total knee arthroplasty on the right in December of next year. Assessment & Plan (03/03/2019 9:12 AM CDT): We discussed the risks, benefits and alternatives of treatment options for osteoarthritis of the knee. From least invasive to most invasive: The only thing to slow the progression of osteoarthritis is weight loss. For every pound lost 4 to 6 pounds of stress is relieved from the knee. Formal physical therapy to help with flexion, extension, mobility and strength. Unloading braces to unload the affected side. The possibility of TENs unit to control pain and swelling. Nonsteroidal anti-inflammatories with the potential of cardiac and GI upset. Steroid and Visco supplement injection. And eventual total knee arthroplasty. He will continue with his rehab on the left knee and consider total knee arthroplasty on the right in the future. Primary hypertension Assessment & Plan (10/29/2024 10:08 AM FLAT SURFACER JEWEL): Chronic stable Well controlled Continue current prescribed medications metoprolol, hyzaaar at current dose Assessment & Plan (02/13/2024 11:14 AM CDT): Chronic stable Well controlled Continue current prescribed medications metoprolol, hyzaaar at current dose Assessment & Plan (02/08/2023 9:44 AM CDT): Chronic stable Well controlled Continue current prescribed medications at current dose Assessment & Plan (08/11/2022 2:46 PM FLAT SURFACER JEWEL): Chronic stable Well controlled Continue current medications at current dose Assessment & Plan (06/30/2021 11:51 AM CDT): Controlled, off norvasc, on hyzaar and hctz Assessment & Plan (12/22/2020 3:11 PM CDT): Controlled, monitor at appt Cont norvasc 2.5 , hyzaar and toprol xl Male hypogonadism Assessment & Plan (10/14/2024 1:45 PM FLAT SURFACER JEWEL): Chronic, stable Continue Jatenzo 237 mg oral BID Recheck levels today Assessment & Plan (03/18/2024 12:40 PM CDT): Chronic, stable Continue Jatenzo 237 mg oral BID Assessment & Plan (02/13/2024 11:14 AM CDT): Recheck levels and will let endocrinology determine plan moving forward Assessment & Plan (08/13/2023 9:55 AM FLAT SURFACER JEWEL): Will get in with endocrinolgy Assessment & Plan (02/08/2023 9:37 AM CDT): Was placed back on t replacement by endocrinology after recent levels were extremely low Assessment & Plan (08/11/2022 2:46 PM FLAT SURFACER JEWEL): Has low T Was on replacement for 20 years Stopped because of increase HCT Assessment & Plan (06/30/2021 11:51 AM CDT): Jina Castro notes reviewed- on testosterone q10d- phlebotmy next early August so advise cbc late novemkber prior rx for tesosterone hand written today for afb Assessment & Plan (12/22/2020 3:12 PM CDT): On replacement from Dr. Anneliese gomez, cont Dyslipidemia Assessment & Plan (10/29/2024 10:08 AM FLAT SURFACER JEWEL): Chronic stable Well controlled Continue current prescribed medications at current dose Assessment & Plan (08/13/2023 9:55 AM FLAT SURFACER JEWEL): Chronic stable Well controlled Continue current prescribed medications at current dose Assessment & Plan (02/08/2023 9:44 AM CDT): Chronic stable Well controlled Continue current prescribed medications at current dose Assessment & Plan (06/30/2021 11:51 AM CDT): Great control 02/2021- no changes Assessment & Plan (12/22/2020 3:12 PM CDT): On statin, cont Other insomnia Assessment & Plan (12/22/2020 3:12 PM CDT): Cont daily celexa Erythrocytosis Assessment & Plan (02/08/2023 9:38 AM CDT): From testosterone replacement therapy Assessment & Plan (02/07/2022 5:46 PM CDT): Had phlebotomy in December, sees Dr. Resendez. hct needs to be less then 50 Assessment & Plan (12/22/2020 3:13 PM CDT): Sees dr xie On phlebotomies t was dec recently Need PSA Pacemaker Assessment & Plan (08/11/2022 2:42 PM FLAT SURFACER JEWEL): Sees cardiology Assessment & Plan (12/22/2020 3:14 PM CDT): For sss replaced in [address] Domo Degroot On toprol xl 50 mg/da Recurrent pain of right knee Assessment & Plan (12/22/2020 3:15 PM CDT): Was seeing benjamin Needs TKR after some weight loss first Resolved Problems Problem Noted Date Diagnosed Date Resolved Date Body mass index (BMI) 50.0-59.9, adult 02/07/2022 02/08/2023 Rash 06/15/2021 02/08/2023 Assessment & Plan (06/15/2021 11:27 AM CDT): Cellulitis x5 days improved with Cephalexin (started 4 days ago) then yesterday started to have rash return- thinks it's the same rash as his cellulitis. I will switch abx, however, based on exam and pruritis, I suspect this may also be a drug allergy (he's also allergic to PCN). Avoid cephalosporins in future. F/u 2 days if not imporving. Right ear pain 12/22/2020 02/08/2023 Cellulitis of arm, left 12/24/201801/22 Assessment & Plan (12/24/2018 1:33 PM CDT): Patient is scheduled for total knee arthroplasty in 3 weeks. Will begin doxycycline 100 mg twice daily for 10 days. Call or return if questions or concerns or does not resolve. BMI 50.0-59.9, adult 07/01/2018 023 Assessment & Plan (06/30/2021 11:50 AM CDT): Nutrition referral Assessment & Plan (05/29/2020 9:17 PM CDT): We discussed the adverse effects of extra weight on osteoarthritis. The only thing proven to slow the progression of osteoarthritis as weight loss. Every 1 lb lost, relieves 4-6 lb of stress across the knee. Continue weight loss through diet and exercise. Consider low carbohydrate diet. RLS (restless legs syndrome) 10/02/2023 Assessment & Plan (02/08/2023 9:45 AM CDT): Chronic stable Well controlled Continue current prescribed medications at current dose Assessment & Plan (12/18/2022 9:39 AM CDT): Patient continue with Requip 2 mg p.o. Q bedtime. Due to the Requip not controlling his limb movements I have added gabapentin 300 mg p.o. Q bedtime also. A prescription has been sent to the pharmacy. Assessment & Plan (12/22/2020 3:13 PM CDT): Uncontrolled, inc requip to 2 mg/da Immunizations Immunization Administration Dates Next Due Hep A, Adult 02/13/1997,07/16/1996 Influenza, Quadrivalent, Hig h Dose, Preservative Free, Intrr 08/13/2023,08/11/2022,07/04/2021 Influenza, Quadrivalent, Spl it, Intramuscular 07/17/2014 Influenza, Quadrivalent, Spl it, Preservative Free, Intramuscular 10/14/2020,09/01/2019,06/29/2018,09/10 Influenza, Split 07/20/2010, 8,08/30/2007,08/12,08/09/2005,10/12/2004 Influenza, Trivalent, IM (MDV) 06/18/2013,2010 Influenza, Trivalent, Preser vative Free, Intramuscular 08/02/2016,07/31/2012 Influenza, Unspecified 07/25/2024,06/22/2021,09/2020 Influenza, Whole 10/14/1999,07/26/1998, 7 MMR 11/22/1982 OPV 11/22/1992 Pfizer SARS-CoV-2 Monovalent Vaccination (12+ Yrs) PURPLE 12/12/2020,11/21/2020 Pneumococcal Conjugate Pcv20 02/08/2023 Pneumococcal Polysaccharide PPV23 07/18/2011 Smallpox 12/23/1980 Td, adsorbed 01/28/1996 Tdap 12/03/2017,07/02/2007 Typohid AKD SQ 10/25/1989 Yellow Fever 05/25/1985 ZOSTER LIVE 08/02/2016 ZOSTER Recombinant 10/14/2020,12/12/2019 Social History Tobacco Use Types Packs/Day Years Used Date Smoking Tobacco: Never Smokeless Tobacco: Never Tobacco Cessation:Counseling Given: Not Answered Alcohol Use Standard Drinks/Week Comments Never 0 (1 standard drink = 0.6 oz pur e alcohol) AUDIT-C Answer Date Recorded Frequency of Alcohol Consumption Not on file 02/13/2024 Q2: How many drinks containi ng alcohol do you have on a typical day when you are drinking? 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 Not on file Not on arik e Last Filed Vital Signs Vital Sign Reading Time Taken Comments Blood Pressure 135/83 10/29/2024 8:15 AM FLAT SURFACER JEWEL Pulse 86 10/29/2024 8:15 AM FLAT SURFACER JEWEL Temperature 36.2 C (97.2 F) 10/29/2024 8:15 AM FLAT SURFACER JEWEL Respiratory Rate 18 10/29/2024 8:15 AM FLAT SURFACER JEWEL Oxygen Saturation 97% 10/29/2024 8:15 AM FLAT SURFACER JEWEL Inhaled Oxygen Concentration - - Weight 190.1 kg (419 lb) 10/29/2024 8:15 AM FLAT SURFACER JEWEL Height 185.4 cm (6' 1 ) 10/29/2024 8:15 AM FLAT SURFACER JEWEL Body Mass Index 55.28 10/29/2024 8:15 AM FLAT SURFACER JEWEL Plan of Treatment Not on file Procedures Procedure Name Priority Date/Time Associated Diagnosis Comments ALBUMIN CREATININE RATIO, URINE Routine 10/14/2024 2:57 PM FLAT SURFACER JEWEL Type 2 diabetes mellitus without complication, without long-term current use of insulin (HCC) Hypertension associated with diabetes (HCC) EGFR Routine 10/14/2024 1:31 PM FLAT SURFACER JEWEL Type 2 diabetes mellitus without complication, without long-term current use of insulin (HCC) Hyperlipidemia associated with type 2 diabetes mellitus (HCC) Hypertension associated with diabetes (HCC) DIFFERENTIAL AUTO Routine 10/14/2024 1:3 1 PM FLAT SURFACER JEWEL Class 3 severe obesity due to excess calories with serious comorbidity and body mass index (BMI) of 50.0 to 59.9 in adult ([facility]) COMPREHENSIVE METABOLIC PANEL Routine 10/14/2024 1:31 PM FLAT SURFACER JEWEL Type 2 diabetes mellitus without complication, without long-term current use of insulin (HCC) Hyperlipidemia associated with type 2 diabetes mellitus (HCC) Hypertension associated with diabetes (HCC) LIPID PANEL Routine 10/14/2024 1:31 PM FLAT SURFACER JEWEL Type 2 diabetes mellitus without complication, without long-term current use of insulin (HCC) Hyperlipidemia associated with type 2 diabetes mellitus (HCC) THYROID FUNCTION CASCADE Routine 10/14/2024 1:31 PM FLAT SURFACER JEWEL Acquired hypothyroidism CBC WITH AUTO DIFFERENTIAL Routine 10/14/2024 1:31 PM FLAT SURFACER JEWEL Class 3 severe obesity due to excess calories with serious comorbidity and body mass index (BMI) of 50.0 to 59.9 in adult ([facility]) PSA SCREEN Routine 10/14/2024 1:31 PM FLAT SURFACER JEWEL Class 3 severe obesity due to excess calories with serious comorbidity and body mass index (BMI) of 50.0 to 59.9 in adult ([facility]) TESTOSTERONE, TOTAL AND FREE, SERUM Routine 10/14/2024 1:28 PM FLAT SURFACER JEWEL Male hypogonadism POCT HEMOGLOBIN A1C Routine 10/14/2024 1 :02 PM FLAT SURFACER JEWEL Type 2 diabetes mellitus without complication, without long-term current use of insulin ([facility]) POCT GLUCOSE Routine 10/14/2024 1:02 PM FLAT SURFACER JEWEL Type 2 diabetes mellitus without complication, without long-term current use of insulin ([facility]) HEPATITIS C ANTIBODY Routine 08/13/2023 10:22 AM FLAT SURFACER JEWEL Encounter for Medicare annual wellness exam DIABETES EYE EXAM Routine 07/26/2023 COLONOSCOPY Routine 04/03/2016 from Last 3 Months or Most Recently Relevant to Health Maintenance Results * Albumin Creatinine Ratio, Urine (10/14/2024 2:57 PM FLAT SURFACER JEWEL) Albumin Ur <12.0 mg/L Comment: Interpretive Data No reference range established. Current interpretive data was last revised 2019. Creatinine Ur 52.5 mg/dL [facility] Comment: Interpretive Data No reference range established. Current interpretive data was last revised 2019. Albumin Creatinine Ratio, Ur <23 1 - 29 mg/g [facility] Urine 10/14/2024 2:57 PM FLAT SURFACER JEWEL 10/14/2024 6:50 PM FLAT SURFACER JEWEL Sydnee Hernadez MD LAB URINE ORDERABLE S Final Result [facility] [id number] Department [place] [address] * (ABNORMAL) eGFR (10/14/2024 1:31 PM FLAT SURFACER JEWEL) eGFR 59(L) >=60 mL/min/1. 73 m2 Comment: Interpretive Data Reference Interval Normal >/= 90 mL/min/1.73m2 Mildly decreased* 60 - 89 mL/min/1.73m2 Mildly to moderately decreased 45 - 59 mL/min/1.73m2 Moderately to severely decreased 30 - 44 mL/min/1.73m2 Severely decreased 15 - 29 mL/min/1.73m2 Kidney Failure < 15 mL/min/1.73m2 *Relative to young adult level Estimated glomerular filtration rate is determined by the 2020 CKD-EPI equation recommended by the National Kidney Foundation (A Unifying Approach to GFR Estimation: Recommendations of the NKF-ASK Task Force on Reassessing the Inclusion of Race in Diagnosing Kidney Disease, JASN 2020). The CKD-EPI equation should not be used for patients with unstable renal function and has not been validated in children and those over 70. Current interpretive data was last reviewed 2021. Blood 10/14/2024 1:31 PM FLAT SURFACER JEWEL 10/14/2024 7:32 PM FLAT SURFACER JEWEL us Sydnee Hernadez MD LAB BLOOD ORDERABLE S Final Result [facility] [id number] Department [place] [address] * Differential, auto (10/14/2024 1:31 PM FLAT SURFACER JEWEL) Neutrophil abs 6.2 1.5 - 6.5 K/cumm Imm gran abs 0.0 0.0 - 0.1 K/cumm [facility] Lymphocyte abs 1.7 0.8 - 3.3 K/cumm [facility] Monocyte abs 0.7 0.2 - 0.8 K/cumm [facility] Eosinophil abs 0.3 0.0 - 0.5 K/cumm [facility] Basophil abs 0.1 0.0 - 0.1 K/cumm [facility] Neutrophil pct 69.9 % [facility] Comment: Interpretive Data Percent cell count reference ranges are not reported, since discordance with absolute values may lead to misinterpretation of CBC data. Current Interpretive Data was last revised on 2018. Imm gran pct 0.3 % [facility] Comment: Interpretive Data Percent cell count reference ranges are not reported, since discordance with absolute values may lead to misinterpretation of CBC data. Current Interpretive Data was last revised on 2018. Lymphocyte pct 18.5 % [facility] Comment: Interpretive Data Percent cell count reference ranges are not reported, since discordance with absolute values may lead to misinterpretation of CBC data. Current Interpretive Data was last revised on 2018. Monocyte pct 7.4 % [facility] Comment: Interpretive Data Percent cell count reference ranges are not reported, since discordance with absolute values may lead to misinterpretation of CBC data. Current Interpretive Data was last revised on 2018. Eosinophil pct 3.1 % [facility] Comment: Interpretive Data Percent cell count reference ranges are not reported, since discordance with absolute values may lead to misinterpretation of CBC data. Current Interpretive Data was last revised on 2018. Basophil pct 0.8 % [facility] Comment: Interpretive Data Percent cell count reference ranges are not reported, since discordance with absolute values may lead to misinterpretation of CBC data. Current Interpretive Data was last revised on 2018. Blood 10/14/2024 1:31 PM FLAT SURFACER JEWEL 10/14/2024 6:48 PM FLAT SURFACER JEWEL us Sydnee Hernadez MD LAB BLOOD ORDERABLE S Final Result Performing Organization Address [facility] Co de Phone Number [facility] LINDA [phone] [facility] [place] [address] * Thyroid Function [place] (10/14/2024 1:31 PM FLAT SURFACER JEWEL) TSH 2.56 0.30 - 4.20 mcIUnit/mL Blood 10/14/2024 1:31 PM FLAT SURFACER JEWEL 10/14/2024 6:48 PM FLAT SURFACER JEWEL us Sydnee Hernadez MD LAB BLOOD ORDERABLE S Final Result Performing Organization Address [facility] Phone Number [facility] [phone] [place] [address] * PSA screen (10/14/2024 1:31 PM FLAT SURFACER JEWEL) PSA-Total 0.84 <=5.40 ng/mL Comment: Interpretive Data AGE SEX REFERENCE INTERVAL 0 minutes-150 years Female None 0 minutes-49 years Male None 50-59 years Male 0-3.90 60-69 years Male 0-5.40 70-79 years Male 0-6.20 80-150 years Male 0-6.20 The Roro PSA Total assay procedure was used. Results from different manufacturers or methods may not be comparable. Serial testing should be performed using the same method. Current interpretive data last revised 22. Blood 10/14/2024 1:31 PM FLAT SURFACER JEWEL 10/14/2024 6:48 PM FLAT SURFACER JEWEL us Sydnee Hernadez MD LAB BLOOD ORDERABLE S Final Result Performing Organization Address [facility] Co de Phone Number [place] [phone] [facility] [place] [address] * (ABNORMAL) CBC with auto differential (10/14/2024 1:31 PM FLAT SURFACER JEWEL) WBC 8.9 3.8 - 9.9 K/cumm Hgb 17.4 13.0 - 17.5 g/dL [facility] Hct 54.3(H) 38.9 - 50.3 % [facility] Plt 290 150 - 400 K/cumm [facility] MPV 9.1 9.1 - 12.3 fL [facility] RBC 5.66 4.30 - 5.80 M/cumm [facility] MCV 95.9 81.3 - 96.4 fL [facility] MCH 30.7 27.1 - 33.3 pg [facility] MCHC 32.0(L) 32.3 - 35.7 g/dL [facility] RDW CV 14.0 11.1 - 14.9 % [facility] RDW SD 49.7(H) 35.7 - 48.1 fL [facility] NRBC abs 0.00 0.00 - 0.01 K/cumm [facility] Blood 10/14/2024 1:31 PM FLAT SURFACER JEWEL 10/14/2024 6:48 PM FLAT SURFACER JEWEL Sydnee Hernadez MD LAB BLOOD ORDERABLE S Final Result [facility] [id number] Department [place] [address] * (ABNORMAL) Lipid panel (10/14/2024 1:31 PM FLAT SURFACER JEWEL) Pathologist [facility] Cholesterol 129 30 - 199 mg/dL Comment: Interpretive Data Ages < or = 19 years Acceptable: <170 mg/dL Borderline high: 170-199 mg/dL High: >or= 200 mg/dL Ages > or = 20 years Desirable: <200 mg/dL Borderline high: 200-239 mg/dL High: >or= 240 mg/dL Literature References: 1. Expert Panel on Integrated Guidelines for Cardiovascular Health and Risk Reduction in Children and Adolescents. Pediatrics 2011;128:S213 2. NCEP Expert Panel. Circulation 2004;110:227 Current Interpretive Data was last revised on 2018. Triglycerides 193(H) <=149 mg/dL [facility] Comment: Interpretive Data Ages < or = 9 years Acceptable: <75 mg/dL Borderline high: 75-99 mg/dL High: >or= 100 mg/dL Ages 10 to 20 years Acceptable: <90 mg/dL Borderline high: 90-129 mg/dL High: >or= 130 mg/dL Ages > or = 20 years Desirable: <150 mg/dL Borderline high: 150-199 mg/dL High: 200-499 mg/dL Very high: >or= 499 mg/dL Literature References: 1. Expert Panel on Integrated Guidelines for Cardiovascular Health and Risk Reduction in Children and Adolescents. Pediatrics 2011;128:S213 2. NCEP Expert Panel. Circulation 2004;110:227 Current Interpretive Data was last revised on 2018. HDL 33(L) >=40 mg/dL [facility] Comment: Interpretive Data Ages < or = 19 years Acceptable: >45 mg/dL Borderline low: 40-45 mg/dL Low: <40 mg/dL Ages > or = 20 years Desirable: >or= 60 mg/dL Low: <40 mg/dL Literature References: 1. Expert Panel on Integrated Guidelines for Cardiovascular Health and Risk Reduction in Children and Adolescents. Pediatrics 2011;128:S213 2. NCEP Expert Panel. Circulation 2004;110:227 Current Interpretive Data was last revised on 2018. LDL, calculated 64 <=129 mg/dL [facility] Comment: Interpretive Data Ages < or = 19 years Acceptable: <110 mg/dL Borderline high: 110-129 mg/dL High: >or= 130 mg/dL Ages > or = 20 years Optimal: <100 mg/dL Near optimal: 100-129 mg/dL Borderline high: 130-159 mg/dL High: >160 mg/dL Calculated using the Benjamin LDL-C estimating equation. This equation was implemented on 2024. Prior to this date LDL-C was estimated using the Friedewald equation. Literature References: 1. Expert Panel on Integrated Guidelines for Cardiovascular Health and Risk Reduction in Children and Adolescents. Pediatrics 2011;128:S213 2. NCEP Expert Panel. Circulation 2004;110:227 3. Benjamin Multani et al. THO Cardiol. 2020 January 22;5(5):540-548. doi: 10.1001/jamacardio.2020.0013 Current Interpretive Data was last revised on 2024. Non-HDL Cholesterol 96 mg/dL [facility] Comment: Interpretive Data Ages < or = 19 years Acceptable: <120 mg/dL Borderline high: 120-144 mg/dL High: >145 mg/dL Ages > or = 20 years When triglycerides are >200 mg/dL, Non-HDL cholesterol is a secondary target of therapy with treatment goals that are 30 mg/dL greater than the LDL cholesterol target. Literature References: 1. Expert Panel on Integrated Guidelines for Cardiovascular Health and Risk Reduction in Children and Adolescents. Pediatrics 2011;128:S213 2. NCEP Expert Panel. Circulation 2004;110:227 Current Interpretive Data was last revised on 2018. Chol/HDL ratio 4 [facility] Blood 10/14/2024 1:31 PM FLAT SURFACER JEWEL 10/14/2024 6:48 PM FLAT SURFACER JEWEL Mary Carmen Satya Hernadez MD LAB BLOOD ORDERABLE S Final Result [facility] [address] Department [place] [address] * (ABNORMAL) Comprehensive metabolic panel (10/14/2024 1:31 PM FLAT SURFACER JEWEL) Sodium 143 135 - 145 mmol/L Potassium, pl 5.1(H) 3.3 - 4.9 mmol/L [facility] Chloride 100 97 - 110 mmol/L [facility] CO2 27 22 - 32 mmol/L [facility] Anion gap 16(H) 2 - 15 mmol/L [facility] BUN 12 6 - 25 mg/dL [facility] Creatinine 1.31(H) 0.80 - 1.30 mg/dL [facility] Glucose 102 70 - 199 mg/dL [facility] Comment: Interpretive Data Fasting glucose >/= 126 mg/dl is diagnostic for diabetes. Fasting is defined as no caloric intake for at least 8 hours. Fasting glucose between 100 mg/dl to 125 mg/dl is diagnostic of prediabetes. In a patient with classic symptoms of hyperglycemia or hyperglycemic crisis, a random glucose >/= 200 mg/dl is diagnostic for diabetes. In the absence of unequivocal hyperglycemia, results should be confirmed by repeat testing. The classification and Diagnosis of Diabetes Diabetes Care 2021; 46: S19-S40. Current interpretive data was last revised 2022. Calcium 10.2 8.5 - 10.3 mg/dL [facility] Bilirubin, total 0.6 0.1 - 1.2 mg/dL [facility] Protein, pl 7.5 6.5 - 8.5 g/dL [facility] Albumin 4.3 3.5 - 5.0 g/dL [facility] Alk phos 88 40 - 130 Units/L [facility] ALT 34 7 - 55 Units/L [facility] AST 32 10 - 50 Units/L [facility] Blood 10/14/2024 1:31 PM FLAT SURFACER JEWEL 10/14/2024 6:48 PM FLAT SURFACER JEWEL us Sydnee Hernadez MD LAB BLOOD ORDERABLE S Final Result [facility] [id number] Department [place] [address] * Testosterone, Total and Free, Serum (10/14/2024 1:28 PM FLAT SURFACER JEWEL) Testosterone 346 240 - 950 ng/dL [place] [facility] Comment: ADDITIONAL INFORMATION Testing performed by Liquid Chromatography-Tandem Mass Spectrometry (LC-MS/MS). This test was developed and its performance characteristics determined by [facility] in a manner consistent with CLIA requirements. This test has not been cleared or approved by the U.S. Food and Drug Administration. Test Performed by: [facility] - [address] [address] [employer] Builder: Lakeshia Ma Ph.D.; CLIA# [id number] Testosterone, free 12.1 3.47 - 13.0 ng/dL [facility] Comment: ADDITIONAL INFORMATION This test was developed and its performance characteristics determined by [facility] in a manner consistent with CLIA requirements. This test has not been cleared or approved by the U.S. Food and Drug Administration. Blood 10/14/2024 1:28 PM FLAT SURFACER JEWEL 10/14/2024 6:48 PM FLAT SURFACER JEWEL Sydnee Hernadez MD LAB BLOOD ORDERABLE S Final Result [facility] [address] Department [place] [address] [place] ref [facility] * POCT hemoglobin A1c (10/14/2024 1:02 PM FLAT SURFACER JEWEL) Hemoglobin A1C, POC 5.9 4.0 - 5.6 % Blood 10/14/2024 1:02 PM FLAT SURFACER JEWEL Sydnee Hernadez MD POINT OF CARE TEST ORDERABLES Final Result * POCT glucose (10/14/2024 1:02 PM FLAT SURFACER JEWEL) Glucose Blood, POC 130 mg/dL Blood 10/14/2024 1:02 PM FLAT SURFACER JEWEL Sydnee Hernadez MD POINT OF CARE TEST ORDERABLES Final Result * Hepatitis C antibody Blood (08/13/2023 10:22 AM FLAT SURFACER JEWEL) Hep C Ab Nonreactive Nonreactive [facility] SM[facility] Comment: Interpretive Data Nonreactive: Antibodies to HCV not detected. Does NOT exclude the possibility of recent exposure to HCV. Equivocal: Equivocal for HCV antibodies. Supplemental molecular testing will be automatically performed to determine infection status in accordance with current CDC screening recommendations. Reactive: Positive for HCV antibodies. This may represent current or past HCV infection. Supplemental molecular testing will be automatically performed to determine current infection status in accordance with current CDC screening recommendations. Interpretive data was last revised on 2019. Blood 08/13/2023 10:2 2 AM FLAT SURFACER JEWEL 08/13/2023 12:40 PM FLAT SURFACER JEWEL us Angel Honeycutt Jr., MD LAB MICROBIOLOGY - GE NERAL ORDERABLES Final Result [facility] [address] [facility] [place] [address] * DIABETES EYE EXAM (07/26/2023) SCRIBED DIABETIC DILATED EYE EXAM Normal us Historical Provider MD HEALTH MAINTENANCE Final Result * COLONOSCOPY (04/03/2016) Scribed Colonoscopy Normal us James Jacobs MD HEALTH MAINTENANCE Final R esult from Last 3 Months or Most Recently Relevant to Health Maintenance Insurance MEDICARE [employer] Care Teams Global Account Manager Relationship Specialty Start Date End Date Angel Honeycutt Jr., MD [facility] [phone] PCP - General Internal Medicine 08/11/22 Domo Degroot MD [facility] [phone] Referring Physician Cardiovascular Disease 08/11/22 Anneliese Gomez MD [address] [place] [address] [phone] Internal Medicine 08/11/22 Nick Xie MD [address] [phone] Referring Physician Hematology 08/11/22 Liz Gomez OD [address] [facility] [place] [phone] Optometry 08/13/23
--- OUTSIDE RECORDS SUMMARY | 2025-01-06 16:00 | XMS_ITS | Clinical Summary ---
Author Organization [facility] Reform Address [facility] [place] [address] Care Team Providers Care Manager Chinese Name Role Phone Yinka Ivy MD, Angel Aquino Primary Care Provide r Domo Degroot MD Unavailable Anneliese Gomez MD Unavailable Nick Xie MD Unavailable [phone] Liz Gomez OD Unavailable Allergies Active Allergy Reactions Criticality Noted Date Comments Adhes. Hyfj-Gksi-Ihyudwlrxluo Rash Medium 12/23/2018 Adhesive Tape-Silicones Rash Medium [...] 1 tablet (100 mcg total) by mouth direct marketing manager before breakfast Take 1 tablet in the [...] 10/29/2024 Assessment & Plan (10/29/2024 10:04 AM FUNERAL HOME MAKEUP ARTIST): Renally dose medications Monitor only Acquired hypothyroidism 03/18/2024 Assessment & Plan (10/14/2024 1:46 PM FUNERAL HOME MAKEUP ARTIST): Chronic, stable Patient currently on Synthroid 100 mcg oral daily Assessment & Plan (03/18/2024 12:40 PM CDT): Chronic, unknown status Patient currently on Synthroid 100 mcg oral daily Recheck thyroid function test and further plans based on it Hyperlipidemia associated with type 2 diabetes teresa albrecht 03/18/2024 Assessment & Plan (10/29/2024 10:05 AM FUNERAL HOME MAKEUP ARTIST): Chronic stable Well controlled Continue current prescribed medications zocor at current dose Assessment & Plan (10/14/2024 1:45 PM FUNERAL HOME MAKEUP ARTIST): Continue statin therapy Assessment & Plan (03/18/2024 12:40 PM CDT): Continue statin therapy Hypertension associated with diabetes 03/18/2024 Assessment & Plan (10/29/2024 10:05 AM FUNERAL HOME MAKEUP ARTIST): Chronic stable Well controlled Continue current prescribed medications hyzaar at current dose Assessment & Plan (10/14/2024 1:45 PM FUNERAL HOME MAKEUP ARTIST): Chronic, well controlled Continue losartan/hydrochlorothiazide Assessment & Plan (03/18/2024 12:40 PM CDT): Chronic, well controlled Continue losartan/hydrochlorothiazide Morbid obesity with BMI of 50.0-59.9, adult 02/23 Assessment & Plan (10/29/2024 10:04 AM FUNERAL HOME MAKEUP ARTIST): Put on mounjaro Needs to loose significant weight for overal health Assessment & Plan (03/18/2024 12:40 PM CDT): Chronic, above goal, progressively worsening BMI 58 Counseled on diet Increase physical activity as tolerated PLMD (periodic limb movement disorder) Assessment & Plan (10/02/2024 3:13 PM FUNERAL HOME MAKEUP ARTIST): I did inform the patient try taking the Requip 2 mg earlier in the evening time. The patient is going to increase the gabapentin to 600 mg. Assessment & Plan (10/02/2023 3:30 PM FUNERAL HOME MAKEUP ARTIST): Due to continued and worsening symptoms, I [...] appt Assessment & Plan (10/29/2024 10:05 AM FUNERAL HOME MAKEUP ARTIST): Follows endocrinology Chronic stable Well controlled Continue current prescribed medications at current dose Assessment & Plan (10/14/2024 1:45 PM FUNERAL HOME MAKEUP ARTIST): Chronic overall improving control Hemoglobin A1c 5.9% [...] dose Assessment & Plan (08/11/2022 2:42 PM FUNERAL HOME MAKEUP ARTIST): Chronic stable Well controlled Continue current medications [...] 02/07 Assessment & Plan (10/29/2024 10:04 AM FUNERAL HOME MAKEUP ARTIST): Chronic stable Well controlled Continue current prescribed medications celexa at current dose Assessment & Plan (02/13/2024 11:12 AM CDT): Chronic stable Well controlled Continue current prescribed medications celexa at current dose Assessment & Plan (08/13/2023 9:54 AM FUNERAL HOME MAKEUP ARTIST): Chronic stable Well controlled Continue current prescribed medications at current dose Assessment & Plan (08/11/2022 2:45 PM FUNERAL HOME MAKEUP ARTIST): Chronic stable Well controlled Continue current medications at current dose Encounter for Medicare annual wellness exam 03/2021 Assessment & Plan (10/29/2024 10:04 AM FUNERAL HOME MAKEUP ARTIST): Reviewed previous labs and diagnostic test results. [...] and establishing or updating healthcare power of prosthetic technician document and providing our office with a copy. Assessment & Plan (08/13/2023 9:20 AM FUNERAL HOME MAKEUP ARTIST): Reviewed previous labs and diagnostic test results. [...] and establishing or updating healthcare power of prosthetic technician document and providing our office with a copy. Assessment & Plan (08/11/2022 2:41 PM FUNERAL HOME MAKEUP ARTIST): Reviewed previous labs and diagnostic test results. [...] and establishing or updating healthcare power of prosthetic technician document and providing our office with a [...] 2020 Assessment & Plan (10/29/2024 10:08 AM FUNERAL HOME MAKEUP ARTIST): Still wears CPAP, follows with pulm Assessment & Plan (10/02/2024 3:13 PM FUNERAL HOME MAKEUP ARTIST): The patient continue to wear CPAP at 16 cm water pressure while sleeping. His DME is [employer]. The patient does have two CPAP machines that he does use. Assessment & Plan (10/02/2023 3:31 PM FUNERAL HOME MAKEUP ARTIST): Due to continued symptoms, the patient will [...] (03/03/2019): January 15, 2019, Saavedra and Nephronaldo weathers primary knee dished polyethylene Assessment & Plan (10/19/2019 6:08 PM FUNERAL HOME MAKEUP ARTIST): No complaints. Fell over the holidays. Continue [...] 12/24/2018 Assessment & Plan (10/29/2024 10:08 AM FUNERAL HOME MAKEUP ARTIST): Started on mounjaro Continue to go up Assessment & Plan (10/14/2024 1:45 PM FUNERAL HOME MAKEUP ARTIST): Chronic, slowly improving but still above goal Counseled on diet and exercise Patient on GLP 1 therapy Assessment & Plan (02/13/2024 11:36 AM CDT): Will go up on Trulicity Certainly play role in overall health conditions Assessment & Plan (08/13/2023 9:55 AM FUNERAL HOME MAKEUP ARTIST): With dm2, HTN Continue trulcitiy Assessment & Plan (02/08/2023 9:44 AM CDT): Sees endocrinology Starting trulcity likely soon, pharmacy no longer carries it Assessment & Plan (08/11/2022 2:46 PM FUNERAL HOME MAKEUP ARTIST): On ozempic, monitor weight Assessment & Plan (10/19/2019 6:08 PM FUNERAL HOME MAKEUP ARTIST): For 1 lb lost, 4-6 lb of [...] 06/18/2017 Assessment & Plan (08/23/2020 4:20 PM FUNERAL HOME MAKEUP ARTIST): We discussed the risks, benefits and alternatives [...] loss. Assessment & Plan (11/02/2019 6:31 PM FUNERAL HOME MAKEUP ARTIST): We discussed the risks, benefits and alternatives [...] months. Assessment & Plan (10/19/2019 6:07 PM FUNERAL HOME MAKEUP ARTIST): We discussed the risks, benefits and alternatives [...] hypertension Assessment & Plan (10/29/2024 10:08 AM FUNERAL HOME MAKEUP ARTIST): Chronic stable Well controlled Continue current prescribed medications metoprolol, hyzaaar at current dose Assessment & Plan (02/13/2024 11:14 AM CDT): Chronic stable Well controlled Continue current prescribed medications metoprolol, hyzaaar at current dose Assessment & Plan (02/08/2023 9:44 AM CDT): Chronic stable Well controlled Continue current prescribed medications at current dose Assessment & Plan (08/11/2022 2:46 PM FUNERAL HOME MAKEUP ARTIST): Chronic stable Well controlled Continue current medications at current dose Assessment & Plan (06/30/2021 11:51 AM CDT): Controlled, off norvasc, on hyzaar and hctz Assessment & Plan (12/22/2020 3:11 PM CDT): Controlled, monitor at appt Cont norvasc 2.5 , hyzaar and toprol xl Male hypogonadism Assessment & Plan (10/14/2024 1:45 PM FUNERAL HOME MAKEUP ARTIST): Chronic, stable Continue Jatenzo 237 mg oral BID Recheck levels today Assessment & Plan (03/18/2024 12:40 PM CDT): Chronic, stable Continue Jatenzo 237 mg oral BID Assessment & Plan (02/13/2024 11:14 AM CDT): Recheck levels and will let endocrinology determine plan moving forward Assessment & Plan (08/13/2023 9:55 AM FUNERAL HOME MAKEUP ARTIST): Will get in with endocrinolgy Assessment & Plan (02/08/2023 9:37 AM CDT): Was placed back on t replacement by endocrinology after recent levels were extremely low Assessment & Plan (08/11/2022 2:46 PM FUNERAL HOME MAKEUP ARTIST): Has low T Was on replacement for [...] Dyslipidemia Assessment & Plan (10/29/2024 10:08 AM FUNERAL HOME MAKEUP ARTIST): Chronic stable Well controlled Continue current prescribed medications at current dose Assessment & Plan (08/13/2023 9:55 AM FUNERAL HOME MAKEUP ARTIST): Chronic stable Well controlled Continue current prescribed [...] Pacemaker Assessment & Plan (08/11/2022 2:42 PM FUNERAL HOME MAKEUP ARTIST): Sees cardiology Assessment & Plan (12/22/2020 3:14 [...] CDT): Uncontrolled, inc requip to 2 mg/da Encounters Date Type Department Care Team Description 10/29/2024 8:30 AM FUNERAL HOME MAKEUP ARTIST Office Visit [facility] Primary Care [address] [place] [phone] Angel Honeycutt Jr., MD Encounter for Medicare [...] (BMI) of 50.0 to 59.9 in adult ([facility]); Cellulitis of right upper arm; Type 2 diabetes mellitus with stage 2 chronic kidney disease, without long-term current use of insulin ([facility]); Hypertension associated with diabetes ([facility]); Hyperlipidemia associated with type 2 diabetes mellitus (HCC) 10/15/[address] [facility] [address] [address] Sydnee Hernandez MD 10/14/2024 1:30 PM FUNERAL HOME MAKEUP ARTIST Lab [address] [address] Class 3 severe obesity due to excess calories with serious comorbidity and body mass index (BMI) of 50.0 to 59.9 in adult ([facility]); Male hypogonadism; Acquired hypothyroidism; Type 2 diabetes mellitus without complication, without long-term current use of insulin ([facility]); Hyperlipidemia associated with type 2 diabetes mellitus ([facility]); Hypertension associated with diabetes ([facility]) 10/14/2024 1:15 PM FUNERAL HOME MAKEUP ARTIST Office Visit [facility] [address] [address] Sydnee Hernandez MD Type 2 [...] in adult (HCC) from Last 3 Months Immunizations Immunization Administration Dates Next Due Hep [...] 05/25/1985 ZOSTER LIVE 08/02/2016 ZOSTER Recombinant 10/14/2020,12/12/2019 Surgical History Surgery Date Site/Laterality Comments RI REPAIR BROW PTOSIS Repair Of Brow Ptosis - (Added by TW Conv) RI BLEPHAROPLASTY UPPER EYELID W/EXCESSIVE SKIN Blepharoplasty Upper Lid W/ Excessive Skin - (Added by TW Conv) KNEE ARTHROSCOPY 09/24/2014 - 09/23/2015 Right ABDOMINAL HERNIA REPAIR APPENDECTOMY 09/24/2003 - 09/23/2004 ANKLE LIGAMENT RECONSTRUCTION 09/24/2006 - 09/23/2007 Left BOWEL RESECTION 09/24/2003 - 09/23/2004 KNEE ARTHROPLASTY 01/15/2019 Left COLON SURGERY 2004 FRACTURE SURGERY 1995 JOINT REPLACEMENT 2018 Medical History Medical History Date Comments Personal history of other di seases of the nervous system and sense organs History of ptosis of e yelid - (Added by TW Conv) Abnormal heart rate Hypertension Dyslipidemia GERD (gastroesophageal reflux disease) Hernia of abdominal wall Osteoarthritis Diabetes mellitus (HCC) 2020 Heart disease 2004 Sleep apnea 2000 Thyroid disease 2021 Family History Medical History Relation Name Comments Alcohol abuse Father Dipti Cancer Father Dipti Lung cancer Father Dipti Memory loss Father Dipti Obesity Father Dipti Heart attack Mother Domoolette Heart disease Mother Whit Stroke Mother Whit Alcohol abuse Other Arthritis Other Cancer Other Heart disease Other Hypertension Other Obesity Sister Mariaelena Relation Name Status Comments Father Dipti Mother Whit Other Sister Mariaelena Social History Tobacco Use Types Packs/Day Years [...] on file Legal Sex Male 4:45 AM FUNERAL HOME MAKEUP ARTIST Gender Identity Male 12/21/2020 12:36 PM CDT Sexual Orientation Straight 12/21/2020 12 :36 PM CDT Occupation Industry Job Start Date Job End Date [employer] Not on file Not on file Not on arik [employer] Obstetrics History Last Filed Vital Signs Vital Sign Reading Time Taken Comments Blood Pressure 135/83 10/29/2024 8:15 AM FUNERAL HOME MAKEUP ARTIST Pulse 86 10/29/2024 8:15 AM FUNERAL HOME MAKEUP ARTIST Temperature 36.2 C (97.2 F) 10/29/2024 8:15 AM FUNERAL HOME MAKEUP ARTIST Respiratory Rate 18 10/29/2024 8:15 AM FUNERAL HOME MAKEUP ARTIST Oxygen Saturation 97% 10/29/2024 8:15 AM FUNERAL HOME MAKEUP ARTIST Inhaled Oxygen Concentration - - Weight 190.1 kg (419 lb) 10/29/2024 8:15 AM FUNERAL HOME MAKEUP ARTIST Height 185.4 cm (6' 1 ) 10/29/2024 8:15 AM FUNERAL HOME MAKEUP ARTIST Body Mass Index 55.28 10/29/2024 8:15 AM FUNERAL HOME MAKEUP ARTIST Plan of Treatment Health Maintenance Due Date Last Done Comments Hepatitis B Screening 12/13/1973 Covid-19 Vaccine (2023-10 5 season) 2024 08/12/2021, 12/12/2020, 11/21/2020 Dilated Eye Exam 07/26/2024 07/26/2023, 08/02/2020 Hemoglobin A1C 04/13/2025 10/14/2024, 02/23, 02/13/2024, Additional history exists Albumin Creatinine Ratio, Urine 10/14/2025 10/14/2024, 08/13/2023, 06/29/2022 Foot Exam 10/14/2025 10/14/2024, 03/18/2024 Lipid Panel 10/14/2025 10/14/2024, 07/26, 06/29/2022, Additional history exists eGFR 10/14/2025 10/14/2024, 01/23, 08/13/2023, Additional history exists Depression Screening 10/29/2025 10/29/2024, 02/13/2024, 10/02/2023, Additional history exists Fall Risk Assessment 10/29/2025 10/29/2024, 03/18/2024, 08/13/2023, Additional history exists Well Visit 65+ 10/29/2025 10/29/2024, 07/26, 08/11/2022, Additional history exists Colon Cancer Screening-Colonoscopy 04/03/2026 04/03/2016 Prostate Cancer Screening-PSA 10/14/2026, 08/13/2023, 04/04/2022 DTaP/Tdap/Td Vaccine (3 - Td or Tdap) 12/04/2027 12/03/2017, 07/02/2007, 01/28/1996 Colon Cancer Screening-CT Colonography Discontinued 04/03/2016 Colon Cancer Screening-DNA Stool Discontinued 04/03/20 Colon Cancer Screening-FIT Discontinued 04/03/2016 Colon Cancer Screening-Sigmoidoscopy Discontinued 04/03/2016 Zoster Vaccine Completed 10/14/2020, 11/23, 08/02/2016 Pneumococcal vaccine 65+ Completed 02/08/2023, 06/25 Hepatitis C Screening Completed 08/13/2023 Influenza Vaccine Completed 07/25/2024, , 08/11/2022, Additional history exists Procedures Procedure Name Priority Date/Time Associated Diagnosis Comments ALBUMIN CREATININE RATIO, URINE Routine 10/14/2024 2:57 PM FUNERAL HOME MAKEUP ARTIST Type 2 diabetes mellitus without complication, without long-term current use of insulin (HCC) Hypertension associated with diabetes (HCC) EGFR Routine 10/14/2024 1:31 PM FUNERAL HOME MAKEUP ARTIST Type 2 diabetes mellitus without complication, without long-term current use of insulin (HCC) Hyperlipidemia associated with type 2 diabetes mellitus (HCC) Hypertension associated with diabetes (HCC) DIFFERENTIAL AUTO Routine 10/14/2024 1:3 1 PM FUNERAL HOME MAKEUP ARTIST Class 3 severe obesity due to excess calories with serious comorbidity and body mass index (BMI) of 50.0 to 59.9 in adult (HCC) COMPREHENSIVE METABOLIC PANEL Routine 10/14/2024 1:31 PM FUNERAL HOME MAKEUP ARTIST Type 2 diabetes mellitus without complication, without long-term current use of insulin (HCC) Hyperlipidemia associated with type 2 diabetes mellitus (HCC) Hypertension associated with diabetes (HCC) LIPID PANEL Routine 10/14/2024 1:31 PM FUNERAL HOME MAKEUP ARTIST Type 2 diabetes mellitus without complication, without long-term current use of insulin (HCC) Hyperlipidemia associated with type 2 diabetes mellitus (HCC) THYROID FUNCTION CASCADE Routine 10/14/2024 1:31 PM FUNERAL HOME MAKEUP ARTIST Acquired hypothyroidism CBC WITH AUTO DIFFERENTIAL Routine 10/14/2024 1:31 PM FUNERAL HOME MAKEUP ARTIST Class 3 severe obesity due to excess calories with serious comorbidity and body mass index (BMI) of 50.0 to 59.9 in adult (HCC) PSA SCREEN Routine 10/14/2024 1:31 PM FUNERAL HOME MAKEUP ARTIST Class 3 severe obesity due to excess calories with serious comorbidity and body mass index (BMI) of 50.0 to 59.9 in adult (HCC) TESTOSTERONE, TOTAL AND FREE, SERUM Routine 10/14/2024 1:28 PM FUNERAL HOME MAKEUP ARTIST Male hypogonadism POCT HEMOGLOBIN A1C Routine 10/14/2024 1 :02 PM FUNERAL HOME MAKEUP ARTIST Type 2 diabetes mellitus without complication, without long-term current use of insulin ([facility]) POCT GLUCOSE Routine 10/14/2024 1:02 PM FUNERAL HOME MAKEUP ARTIST Type 2 diabetes mellitus without complication, without long-term current use of insulin ([facility]) HEPATITIS C ANTIBODY Routine 08/13/2023 10:22 AM FUNERAL HOME MAKEUP ARTIST Encounter for Medicare annual wellness exam DIABETES EYE EXAM Routine 07/26/2023 COLONOSCOPY Routine 04/03/2016 from Last 3 Months or Most Recently Relevant to Health Maintenance Results * Albumin Creatinine Ratio, Urine (10/14/2024 2:57 PM FUNERAL HOME MAKEUP ARTIST) Albumin Ur <12.0 mg/L Comment: Interpretive Data No reference range established. Current interpretive data was last revised 2019. Creatinine Ur 52.5 mg/dL [facility] Comment: Interpretive Data No reference range established. Current interpretive data was last revised 2019. Albumin Creatinine Ratio, Ur <23 1 - 29 mg/g [facility] Urine 10/14/2024 2:57 PM FUNERAL HOME MAKEUP ARTIST 10/14/2024 6:50 PM FUNERAL HOME MAKEUP ARTIST Sydnee Hernadez MD LAB URINE ORDERABLE S Final Result Performing Organization Address City/State/[facility] Co de Phone Number [facility] [address] Department [place] [address] * (ABNORMAL) eGFR (10/14/2024 1:31 PM FUNERAL HOME MAKEUP ARTIST) eGFR 59(L) >=60 mL/min/1. 73 m2 Comment: [...] last reviewed 2021. Blood 10/14/2024 1:31 PM FUNERAL HOME MAKEUP ARTIST 10/14/2024 7:32 PM FUNERAL HOME MAKEUP ARTIST Sydnee Hernadez MD LAB BLOOD ORDERABLE S Final Result Performing Organization Address [facility] Co de Phone Number [facility] [address] Department [place] [address] * Differential, auto (10/14/2024 1:31 PM FUNERAL HOME MAKEUP ARTIST) Neutrophil abs 6.2 1.5 - 6.5 K/cumm Imm gran abs 0.0 0.0 - 0.1 K/cumm [facility] Lymphocyte abs 1.7 0.8 - 3.3 K/cumm [facility] Monocyte abs 0.7 0.2 - 0.8 K/cumm [facility] Eosinophil abs 0.3 0.0 - 0.5 K/cumm [facility] Basophil abs 0.1 0.0 - 0.1 K/cumm [facility] Neutrophil pct 69.9 % [facility] Comment: Interpretive Data Percent cell count reference ranges are not reported, since discordance with absolute values may lead to misinterpretation of CBC data. Current Interpretive Data was last revised on 2018. Imm gran pct 0.3 % [facility] Comment: Interpretive Data Percent cell count reference ranges are not reported, since discordance with absolute values may lead to misinterpretation of CBC data. Current Interpretive Data was last revised on 2018. Lymphocyte pct 18.5 % [facility] Comment: Interpretive Data Percent cell count reference ranges are not reported, since discordance with absolute values may lead to misinterpretation of CBC data. Current Interpretive Data was last revised on 2018. Monocyte pct 7.4 % [facility] Comment: Interpretive Data Percent cell count reference ranges are not reported, since discordance with absolute values may lead to misinterpretation of CBC data. Current Interpretive Data was last revised on 2018. Eosinophil pct 3.1 % [facility] Comment: Interpretive Data Percent cell count reference ranges are not reported, since discordance with absolute values may lead to misinterpretation of CBC data. Current Interpretive Data was last revised on 2018. Basophil pct 0.8 % [facility] Comment: Interpretive Data Percent cell count reference ranges are not reported, since discordance with absolute values may lead to misinterpretation of CBC data. Current Interpretive Data was last revised on 2018. Blood 10/14/2024 1:31 PM FUNERAL HOME MAKEUP ARTIST 10/14/2024 6:48 PM FUNERAL HOME MAKEUP ARTIST us Sydnee Hernadez MD LAB BLOOD ORDERABLE S Final Result [facility] [id number] Department [place] [address] * Thyroid Function [place] (10/14/2024 1:31 PM FUNERAL HOME MAKEUP ARTIST) TSH 2.56 0.30 - 4.20 mcIUnit/mL Blood 10/14/2024 1:31 PM FUNERAL HOME MAKEUP ARTIST 10/14/2024 6:48 PM FUNERAL HOME MAKEUP ARTIST Sydnee Hernadez MD LAB BLOOD ORDERABLE S Final Result [facility] [address] Department [place] [address] * PSA screen (10/14/2024 1:31 PM FUNERAL HOME MAKEUP ARTIST) PSA-Total 0.84 <=5.40 ng/mL Comment: Interpretive Data [...] last revised 22. Blood 10/14/2024 1:31 PM FUNERAL HOME MAKEUP ARTIST 10/14/2024 6:48 PM FUNERAL HOME MAKEUP ARTIST Sydnee Hernadez MD LAB BLOOD ORDERABLE S Final Result [facility] [address] Department [place] [address] * (ABNORMAL) CBC with auto differential (10/14/2024 1:31 PM FUNERAL HOME MAKEUP ARTIST) WBC 8.9 3.8 - 9.9 K/cumm Hgb 17.4 13.0 - 17.5 g/dL [facility] Hct 54.3(H) 38.9 - 50.3 % [facility] Plt 290 150 - 400 K/cumm [facility] MPV 9.1 9.1 - 12.3 fL [facility] RBC 5.66 4.30 - 5.80 M/cumm [facility] MCV 95.9 81.3 - 96.4 fL [facility] MCH 30.7 27.1 - 33.3 pg [facility] MCHC 32.0(L) 32.3 - 35.7 g/dL [facility] RDW CV 14.0 11.1 - 14.9 % [facility] RDW SD 49.7(H) 35.7 - 48.1 fL [facility] NRBC abs 0.00 0.00 - 0.01 K/cumm [facility] Blood 10/14/2024 1:31 PM FUNERAL HOME MAKEUP ARTIST 10/14/2024 6:48 PM FUNERAL HOME MAKEUP ARTIST us Sydnee Hernadez MD LAB BLOOD ORDERABLE S Final Result [facility] [address] Department of Laboratories [place], [place] [id number] * (ABNORMAL) Lipid panel (10/14/2024 1:31 PM FUNERAL HOME MAKEUP ARTIST) Cholesterol 129 30 - 199 mg/dL Comment: [...] revised on 2018. Triglycerides 193(H) <=149 mg/dL [facility] Comment: Interpretive Data Ages < or = [...] on 2018. HDL 33(L) >=40 mg/dL [facility] Comment: Interpretive Data Ages < or = [...] 2018. LDL, calculated 64 <=129 mg/dL [facility] Comment: Interpretive Data Ages < or = [...] 3. Benjamin Multani et al. THO Cardiol. 2019January 22;5(5):540-548. doi: 10.1001/[email or web address].2020.0013 Current Interpretive Data was last revised on 2024. Non-HDL Cholesterol 96 mg/dL [facility] Comment: Interpretive Data Ages < or = [...] last revised on 2018. Chol/HDL ratio 4 [facility] Blood 10/14/2024 1:31 PM FUNERAL HOME MAKEUP ARTIST 10/14/2024 6:48 PM FUNERAL HOME MAKEUP ARTIST Sydnee Hernadez MD LAB BLOOD [place] [id number] [address] Department [place] [address] * (ABNORMAL) Comprehensive metabolic panel (10/14/2024 1:31 PM FUNERAL HOME MAKEUP ARTIST) Sodium 143 135 - 145 mmol/L Potassium, pl 5.1(H) 3.3 - 4.9 mmol/L [facility] Chloride 100 97 - 110 mmol/L [facility] CO2 27 22 - 32 mmol/L [facility] Anion gap 16(H) 2 - 15 mmol/L [facility] BUN 12 6 - 25 mg/dL [facility] Creatinine 1.31(H) 0.80 - 1.30 mg/dL [facility] Glucose 102 70 - 199 mg/dL [facility] Comment: Interpretive Data Fasting glucose >/= 126 [...] Units/L [facility] Blood 10/14/2024 1:31 PM FUNERAL HOME MAKEUP ARTIST 10/14/2024 6:48 PM FUNERAL HOME MAKEUP ARTIST Sydnee Hernadez MD LAB BLOOD ORDERABLE S Final Result Performing Organization Address City/[facility]/ZIP Co de Phone Number [facility] [address] [place] [address] * Testosterone, Total and Free, Serum (10/14/2024 1:28 PM FUNERAL HOME MAKEUP ARTIST) Pathologist [facility] Testosterone 346 240 - 950 ng/dL [place] ref Lab Comment: ADDITIONAL INFORMATION Testing performed by Liquid Chromatography-Tandem Mass Spectrometry (LC-MS/MS). This test was developed and its performance characteristics determined by [facility] in a manner consistent with CLIA requirements. This test has not been cleared or approved by the U.S. Food and Drug Administration. Test Performed by: [facility] [place] [address] [employer] Supervisor: Lakeshia Ma Ph.D.; CLIA# [id number] Testosterone, free 12.1 3.47 - 13.0 ng/dL [facility] Comment: ADDITIONAL INFORMATION This test was developed and its performance characteristics determined by [facility] in a manner consistent with CLIA requirements. This test has not been cleared or approved by the U.S. Food and Drug Administration. Blood 10/14/2024 1:28 PM FUNERAL HOME MAKEUP ARTIST 10/14/2024 6:48 PM FUNERAL HOME MAKEUP ARTIST Sydnee Hernadez MD LAB BLOOD ORDERABLE S Final Result [facility] [address] [place] [address] [place] ref Lab * POCT hemoglobin A1c (10/14/2024 1:02 PM FUNERAL HOME MAKEUP ARTIST) Pathologist [facility] Hemoglobin A1C, POC 5.9 4.0 - 5.6 % Blood 10/14/2024 1:02 PM FUNERAL HOME MAKEUP ARTIST Sydnee Hernadez MD POINT OF CARE TEST ORDERABLES Final Result * POCT glucose (10/14/2024 1:02 PM FUNERAL HOME MAKEUP ARTIST) [facility] Glucose Blood, POC 130 mg/dL Blood 10/14/2024 1:02 PM FUNERAL HOME MAKEUP ARTIST Sydnee Hernadez MD POINT OF CARE TEST ORDERABLES Final Result * Hepatitis C antibody Blood (08/13/2023 10:22 AM FUNERAL HOME MAKEUP ARTIST) [facility] Hep C Ab Nonreactive Nonreactive PIERCE Comment: Interpretive Data Nonreactive: Antibodies to HCV [...] on 2019. Blood 08/13/2023 10:2 2 AM FUNERAL HOME MAKEUP ARTIST 08/13/2023 12:40 PM FUNERAL HOME MAKEUP ARTIST Angel Honeycutt Jr., MD LAB MICROBIOLOGY - [facility] ORDERABLES Final Result [facility] [address] [facility] Department [place] [address] * DIABETES EYE EXAM (07/26/2023) Pathologist [facility] SCRIBED DIABETIC DILATED EYE EXAM Normal Getachew Tran MD HEALTH MAINTENANCE Final Result * COLONOSCOPY (04/03/2016) [facility] Scribed Colonoscopy Normal James Jacobs MD HEALTH MAINTENANCE Final R esult from Last 3 Months or Most Recently Relevant to Health Maintenance Insurance MEDICARE [facility] FOR LIFE MEDICARE FOR LIFE Care Teams Manager Chinese Relationship Specialty Start Date End Date Angel Honeycutt Jr., MD [address] [place] [address] PCP - General Internal Medicine 08/11/22 Domo Degroot MD [address] [place] [address] [id number] Referring Physician Cardiovascular Disease 08/11/22 Anneliese Gomez MD [address] [place] [address] Internal Medicine 08/11/22 Nick Xie MD [address] [address] Referring Physician Hematology 08/11/22 Liz Gomez OD [address] [place], [place] [address] [address] Optometry 08/13/23
--- OUTSIDE RECORDS SUMMARY | 2025-01-06 16:00 | XMS_ITS | Encounter Summary ---
Author Organization [facility] Address [facility] [place] [address] Care Team Providers Care Administrative Director Name Role Phone Isaiah Carroll MD, Nash Primary Care Provider [phone] Domo Degroot MD Unavailable Angel Jane MD Unavailable [phone] Vern Brewer MD Primary Care Provider Mary Maldonado MD Primary Care Provider + Yinka Ivy MD, Angel Huerta Primary Care Pro vider Encounter Details Date Type Department Care Team (Late st Contact Info) Description 04/02/2019 [facility], [facility] [address] [place], [place] [id number] Hortencia Fortune MA Social History Tobacco Use Types Packs/Day Years Used Date Smoking Tobacco: Never Smokeless Tobacco: Never Alcohol Use Standard Drinks/Week Comments No 0 (1 standard drink = 0.6 oz pur e alcohol) Sex and Gender Information Value Date Recorded Sex Assigned at Male 12/02/2024 11:15 AM CDT Legal Sex Male 10:55 PM CDT Gender Identity Not on file Sexual Orientation Not on file Occupation Industry Job Start Date Job End Date Not on file Not on file Not on file Not on file documented as of this encounter Functional Status * RETIRED Are you deaf or do you have serious difficulty hearing Answer Date of Assessment Author Status No 11/15/2018 10:48 AM CUSTOMER CARE ASSOCIATE Acti ve * RETIRED Are you blind or do you have serious difficulty seeing, even when wearing glasses? Answer Date of Assessment Author Status No 11/15/2018 10:48 AM CUSTOMER CARE ASSOCIATE Acti ve * Do you have serious difficulty walking or climbing stairs? Answer Date of Assessment Author Status No 11/15/2018 10:48 AM Keysha Serrano RN Active * Do you have difficulty dressing or bathing? Answer Date of Assessment Author Status No 11/15/2018 10:48 AM Keysha Serrano RN Active * Because of a physical, mental, or emotional condition, do you have difficulty doing errands alone such as visiting a doctor's office or shopping? Answer Date of Assessment Author Status No 11/15/2018 10:48 AM Keysha Serrano RN Active documented as of this encounter Mental Status * Because of a physical, mental, or emotional condition, do you have serious difficulty concentrating, remembering, or making decisions? Answer Entry Date Author Status No 11/15/2018 10:48 AM Keysha Serrano RN Active documented in this encounter Plan of Treatment Upcoming Encounters Date Type Department Care Team (Late st Contact Info) Description 01/27/2025 7:15 AM CDT Appointment [facility] [place] [address] Domo Degroot MD Three [facility]. [facility] [address] [place] [address] 01/27/2025 8:30 AM CDT Office Visit [facility] THREE [facility], [facility] [address] [place] [address] Dmoo Degroot MD [facility]. [facility] [address] [place] [address] 03/02/2025 11:25 AM CDT Allied Health/Nurse Visit [facility], [place] [address] [place] [address] Domo Degroot MD [facility]. [address] [place], [place] [address] 06/09/2025 11:30 AM CDT Office Visit [facility], [address] [place], [place] [address] Rafaela Dinh, ANP-BC [facility]. [address] [place], [place] [id number] documented as of this encounter Procedures Procedure Name Priority Date/Time Associated Diagnosis Comments CBC (OUTSIDE LAB) Routine 09/01/2019 COMPREHENSIVE METABOLIC PANEL Routine 09/01/2019 LIPID PANEL Routine 09/01/2019 HEMOGLOBIN, GLYCOSYLATED Routine 09/01/2019 THYROXINE, FREE (FT4) Routine 09/01/2019 THYROID STIM HORMONE TSH Routine 09/01/2019 BASIC METABOLIC PANEL Routine 01/17/2019 documented in this encounter Results * HEMOGLOBIN, GLYCOSYLATED (09/01/2019) HGB A1C 5.7 4.0 - 5.6 09/01/2019 us [facility] Final Result * CBC (OUTSIDE LAB) (09/01/2019) WBC 6.5 HGB 15.4 HCT 46.2 PLT 251 09/01/2019 [facility] Abstract LAB-OUTSIDE/ABSTRACTED Final Result * LIPID PANEL (09/01/2019) CHOLESTEROL 141 HDL 46 TRIGLYCERIDES 78 LDL (CALCULATED) 86 09/01/2019 Doc [facility] Final Result * THYROXINE, FREE (FT4) (09/01/2019) FREE T4 0.90 0.70 - 1.47 09/01/2019 us [facility] Final Result * COMPREHENSIVE METABOLIC PANEL (09/01/2019) SODIUM S/P/B 143 POTASSIUM S/P/B 4.5 CO2 28 CHLORIDE S/P/B 106 GLUCOSE 97 mg/dL CALCIUM S/P/B 8.4 BUN 15 CREATININE S/P/B 1.10 0.7 - 1.3 EGFR AFR. AMER. 82 EGFR NON-AFR. AMER. 71 <=90 ALKALINE PHOSPHATASE S/P/B 109 ALT 21 AST 15 BILIRUBIN TOTAL S/P/B 0.5 ALBUMIN S/P/B 3.9 3.5 - 5.0 TOTAL PROTEIN S/P/B 6.8 09/01/2019 [facility] Final Result * THYROID STIM HORMONE, TSH (09/01/2019) TSH 3.39 0.34 - 4.94 09/01/2019 us [facility] Final Result * BASIC METABOLIC PANEL (01/17/2019) SODIUM S/P/B 140 POTASSIUM S/P/B 3.7 CO2 27 CHLORIDE S/P/B 103 GLUCOSE 115 mg/dL CALCIUM S/P/B 8.4 BUN 14 CREATININE S/P/B 1.1 0.7 - 1.3 EGFR NON-AFR. AMER. 72 <=90 01/17/2019 [facility] Final Result documented in this encounter Visit Diagnoses Not on filedocumented in this encounter Care Teams Administrative Director Relationship Specialty Start Date End Date Karishma Colon MD [phone] (Work) PCP - General GROUTMAN 12/26/16 09/18/19 Vern Brewer MD [facility]. [address] [address] PCP - General NEPHROLOGY 09/19/19 09/23/20 Mary [facility] [place] [address] [place] [address] PCP - General HOSPITALIST 09/24/20 07/22/22 Angel Honeycutt Jr., MD [address] [place] [address] PCP - General HOSPITALIST 07/23/22 Domo Degroot MD [facility] [place] [address] [place] [address] [employer] Machine Operator INTERVENTIONAL CARDIOLOGY 10/04/18 Angel Jane MD [facility] [address] [place] [address] [id number] EP Metal Riveting Machine Operator CARDIOVASCULAR DISEASE 10/24/18 documented as of this encounter
--- OUTSIDE RECORDS SUMMARY | 2025-01-06 16:00 | XMS_ITS | Encounter Summary ---
Author Organization [facility] Facility Care Team Providers Care Tub Tender Name Role Phone Karishma Ghosh MD Primary Care Provider [facility] Primary Care Provider Donna Ochoa DO Primary Care Provider [phone] Tiki Jeff MD Primary Care Provider [phone] Mary Mcdonald MD Primary Care Provider [facility] Primary Care Provider Mary Mcdonald MD Primary Care Provider [facility] Primary Care Provider Mary Mcdonald MD Primary Care Provider Yinka Ivy MD, Angel Aquino Primary Care Provide r Domo Degroot MD Unavailable Anneliese Barrow MD Unavailable Nick Xie MD Unavailable [phone] Liz Gomez OD Unavailable [phone] Encounter Details Date Type Department Care Team (Latest Contact Info) Description 11/19/2018 Orders Only [facility] CLINCONV ProviderGetachew MD [address] [place] [address] Social History Tobacco Use Types Packs/Day Years Used Date Smoking Tobacco: Never Sex and Gender Information Value Date Recorded Sex Assigned at Not on file Legal Sex Male 4:45 AM PHOTOGRAPHIC EQUIPMENT INSPECTOR Gender Identity Male 12/21/2020 12:36 PM CDT Sexual Orientation Straight 12/21/2020 12 :36 PM CDT documented as of this encounter Plan of Treatment Not on file documented as of this encounter Procedures Procedure Name Priority Date/Time Associated Diagnosis Comments PROCEDURE - RESULT 11/19/2018 12 :00 AM PHOTOGRAPHIC EQUIPMENT INSPECTOR documented in this encounter Results * PROCEDURE - RESULT (11/19/2018 12:00 AM PHOTOGRAPHIC EQUIPMENT INSPECTOR) Narrative 11/19/2018 12:00 AM PHOTOGRAPHIC EQUIPMENT INSPECTOR Ordered by an unspecified provider. Historical Provider Final Res ult documented in this encounter Visit Diagnoses Not on filedocumented in this encounter Care Teams Tub Tender Relationship Specialty Start Date End Date Karishma Ghosh [place] [facility] [place] [address] PCP - General Family Practice 12/13/18 10/12/19 [place] [address] [place] [address] PCP - General 10/13/19 08/22/20 Donna Ochoa [place] [facility] [address] PCP - General Family Medicine 08/23/20 12/13/20 Tiki Jeff [place] [facility] [place] [address] PCP - General Pulmonary Disease 12/14/20 12/14/20 Mary Mcdonald MD [address] [place] [address] PCP - General Internal Medicine 12/22/20 05/12/21 [place] [address] [place] [address] PCP - General 05/13/21 05/19/21 Mary Mcdonald MD [address] [place] [address] PCP - General Internal Medicine 05/20/21 05/23/21 [place] [address] [place] [address] PCP - General 05/24/21 05/25/21 Mary Mcdonald MD [address] [place] [address] PCP - General 05/26/21 08/10/22 Angel Honeycutt Jr., MD [address] [place] [address] PCP - General Internal Medicine 08/11/22 Domo Degroot MD [address] [place] [address] Referring Physician Cardiovascular Disease 08/11/22 Anneliese Barrow MD [address] [place] [address] [phone] Internal Medicine 08/11/22 Nick Xie MD [address] [address] Referring Physician Hematology 08/11/22 Liz Gomez, [address] [place] [address] Optometry 08/13/23 documented as of this encounter
--- OUTSIDE RECORDS SUMMARY | 2025-01-06 16:00 | XMS_ITS | Encounter Summary ---
Author Organization [facility] Address [facility] [place] [address] Care Team Providers Care Manager Card Name Role Phone Domo Degroot MD Unavailable Angel Jane MD Unavailable [phone] Mary Mcdonald MD Primary Care Provider + iYnka Ivy MD, Angel Huerta Primary Care Pro vider Encounter Details Date Type Department Care Team (Late st Contact Info) Description 11/19/2020 [facility], [address] [address] Hortencia Fortune MA Social History Tobacco Use [...] file Not on file Not on file COVID-19 Exposure Response Date Recorded In the last month, have you been in contact with someone who was confirmed or suspected to have Coronavirus / COVID-19? No / Unsure 11/01/2020 9:02 AM RADIATOR REPAIRER documented as of this encounter Functional Status * RETIRED Are you deaf or do you have serious difficulty hearing Answer Date of Assessment Author Status No 11/15/2018 10:48 AM RADIATOR REPAIRER Acti ve * RETIRED Are you blind or do you have serious difficulty seeing, even when wearing glasses? Answer Date of Assessment Author Status No 11/15/2018 10:48 AM RADIATOR REPAIRER Acti ve * Do you have serious [...] Info) Description 01/27/2025 7:15 AM CDT Appointment [facility] [place] [address] Domo Degroot MD Three [facility]. [facility] [address] [place] [address] 01/27/2025 8:30 AM CDT Office Visit [facility] THREE [facility], [facility] [address] [place] [address] Domo Degroot MD Three [facility]. [facility] [address] [place] [address] 03/02/2025 11:25 AM CDT Allied Health/Nurse Visit [facility], [place] [place], [place] [address] Domo Degroot MD Three [facility]. [address] [place] [address] 06/09/2025 11:30 AM CDT Office Visit [facility] THREE [facility], [address] [place], [place] [address] Rafaela Dinh, ANP-BC Three [facility]. [address] [address] [place], [place] [address] documented as of this encounter Procedures Procedure Name Priority Date/Time Associated Diagnosis Comments CBC (OUTSIDE LAB) Routine 09/22/2020 COMPREHENSIVE METABOLIC PANEL Routine 09/22/2020 CBC (OUTSIDE LAB) Routine 07/30/2020 PROSTATE SPECIFIC ANTIGEN,TOTAL Routine 07/30/2020 COMPREHENSIVE METABOLIC PANEL Routine 07/30/2020 HEMOGLOBIN, GLYCOSYLATED Routine 07/30/2020 FREE T3 Routine 05/21/2020 LIPID PANEL Routine 05/21/2020 documented in this encounter Results * CBC (OUTSIDE LAB) (09/22/2020) WBC 7.1 HGB 16.2 HCT 49 PLT 244 09/22/2020 [facility] Abstract LAB-OUTSIDE/ABSTRACTED Final Result * (ABNORMAL) COMPREHENSIVE METABOLIC PANEL (09/22/2020) SODIUM S/P/B 140 POTASSIUM S/P/B 4.7 CO2 25 CHLORIDE S/P/B 103 GLUCOSE 107 mg/dL CALCIUM S/P/B 9.1 BUN 13 CREATININE S/P/B 1.0 0.7 - 1.3 EGFR AFR. AMER. 92(A) <=90 EGFR NON-AFR. AMER. 79 <=90 ALKALINE PHOSPHATASE S/P/B 78 ALT 29 AST 19 BILIRUBIN TOTAL S/P/B 0.5 ALBUMIN S/P/B 3.8 3.5 - 5.0 TOTAL PROTEIN S/P/B 6.5 09/22/2020 us Doc [facility] Final Result * CBC (OUTSIDE LAB) (07/30/2020) WBC 6.6 HGB 17.1 HCT 52.1 PLT 246 07/30/2020 us Doc [facility] Abstract LAB-OUTSIDE/ABSTRACTED Final Result * (ABNORMAL) COMPREHENSIVE METABOLIC PANEL (07/30/2020) SODIUM S/P/B 142 POTASSIUM S/P/B 4.5 CO2 29 CHLORIDE S/P/B 103 GLUCOSE 93 mg/dL CALCIUM S/P/B 9.5 BUN 16 CREATININE S/P/B 1.0 0.7 - 1.3 EGFR AFR. AMER. 92(A) <=90 EGFR NON-AFR. AMER. 79 <=90 ALKALINE PHOSPHATASE S/P/B 80 ALT 22 AST 15 BILIRUBIN TOTAL S/P/B 0.5 ALBUMIN S/P/B 3.9 3.5 - 5.0 TOTAL PROTEIN S/P/B 6.3 07/30/2020 us Doc [facility] Final Result * HEMOGLOBIN, GLYCOSYLATED (07/30/2020) HGB A1C 5.5 % 07/30/2020 us Doc [facility] Final Result * PROSTATE SPECIFIC ANTIGEN,TOTAL (07/30/2020) PSA 2.3 07/30/2020 us Doc [facility] Final Result * LIPID PANEL (05/21/2020) CHOLESTEROL 130 HDL 32 TRIGLYCERIDES 206 LDL (CALCULATED) 66 05/21/2020 us Doc [facility] Final Result * FREE T3 (05/21/2020) FREE T3 2.6 2.0 - 4.4 05/21/2020 us Doc [facility] Final Result documented in this encounter Visit Diagnoses Not on filedocumented in this encounter Care Teams Manager Card Relationship Specialty Start Date End Date Mary Mcdonald MD [facility]. [place] [address] [place] [address] PCP - General HOSPITALIST 09/24/20 07/22/22 Angel Honeycutt Jr., MD [address] [place] [address] PCP - General HOSPITALIST 07/23/22 Domo Degroot MD [facility]. [address] [address] [place] [address] [place] Circular Saw Edge Fuser INTERVENTIONAL CARDIOLOGY 10/04/18 Angel Jane MD [facility]. [address] [place] [address] EP Circular Saw Edge Fuser CARDIOVASCULAR DISEASE 10/24/18 documented as of this encounter
--- OUTSIDE RECORDS SUMMARY | 2025-01-06 16:00 | XMS_ITS | Encounter Summary ---
Author Name [facility] [place] Organization [facility] [facility] [place] Address [address] [place] [address] Support Name Relationship Address Phone CAITLYN VELASQUEZ Next of Kin [address] [place] [address] CAITLYN VELASQUEZ Emergency Contact [address] [place] [address] Unavailable Insurance Providers: All historical and current Section Date Range: From patient's date of to the date document was created. This section includes the names of all active insurance providers for the patient. Insurance Provider Type of Coverage Plan Name Start of Policy Coverage End of Policy Coverage Group Number Member ID Insurance Provider's Telephone Number Policy Damon's Name Patient's Relationship to Policy Damon MEDICARE (WNR) MEDICARE (M) PART A Nov 22, 2020 PART A [id number] IBAN VELASQUEZ PATIENT MEDICARE (WNR) MEDICARE (M) PART B Nov 22, 2020 PART B [id number] [phone] IBAN VELASQUEZ PATIENT Selected Encounter This section includes the information on record at [place] for the Encounter. Date/Time Encounter Type Encounter Description Reason Provider Source Jun 26, 2024 07:45 AM HEARING AID EXAM BOTH EARS AUDIOLOGY ICD-10-CM H90.3 Sensorineural hearing loss, bilateral SUDHIR ARREOLA Encounter Template Text not used by [place] Assessments - Encounter Diagnoses This section includes the primary and secondary diagnoses documented for the Encounter. Date/Time Primary/Secondary Diagnosis Diagnosis Name Provider Source Jun 26, 2024 08:09 AM PRIMARY Sensorineural hearing loss, bilateral FABIENNE ARREOLA [facility] Plan of Treatment: Future Appointments (+ 6 months) and Future Tests (+/- 45 days) The Plan of Treatment section includes future care activities for the patient from all [place] treatmentfacilities. This section includes future appointments and future orders which are active, pending or scheduled. Future Appointments This section includes appointments that were scheduled to occur 6 months from the date of the Encounter, up to a maximum of 20 appointments. The data comes from all [place] treatment facilities. Appointment Date/Time Appointment Type Appointme nt Facility Name Aug 11, 2024 02:00 PM AMBULATORY - SURGERY . [facility] Encounter Notes: All associated encounter notes This section contains the clinical notes associated to the Encounter. Date/Time Encounter Note(s) Provider Source Jun 26, 2024 07:44 AM AUDIOLOGY E & M NO TE: LOCAL TITLE: AUDIO EVALS STL STANDARD TITLE: AUDIOLOGY E & M NOTE DATE OF NOTE: JUN 26, 2024@07:44 ENTRY DATE: JUN 26, 2024@07:44:43 AUTHOR: MARSHALL ARREOLA COSIGNER: URGENCY: STATUS: COMPLETED SUBJECT: Hearing AUDIO EVALS STL Has ADDENDA Audiogram: Purpose of appointment: audio [x] Pepperell initiated visit Case history: Otoscopic evaluation: normal AU. Pepperell's main complaint is bilateral hearing loss. reports constant, long-standing tinnitus bilaterally that he described as only bothersome when it stops. Pepperell reports that most of the time he feels like there is water in his ears and they itch constantly. 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 denied any ear pain, pressure, fullness, history of otosurgery, history of TM perforation, and any recent ear infections. has never had hearing aids. -Pepperell has an Android phone. Last evaluation on 06/16/2022. -Pepperell had a normal ABR 08/11/2022. - brought in 03/10/2024 audio from [employer] Department of Otolaryngology completed by Marielena Bone; Audio entered in [employer]. Completed Request to Scan Non-VA Documents Form (SOP [id number] Appendix A] and placed in inner-office mail to be sent for scanning. Pepperell is a candidate for hearing aids. Counseled Pepperell regarding degree of loss. Discussed full-time commitment and realistic expectations of hearing aids. HAE to follow. HAE: Hearing Aid Exam performed today: [x] Binaural Otoscopy reveals clear canals. Appropriate evaluation of leads to hearing aid order. Ear mold impressions taken, all margins of otoblocks visualized with no gaps prior to impressions taken without incident. Hearing aids will be ordered and appointment requested for fitting. [x] Provider initiated visit [x] New user Discussed aids with Pepperell to include the following: STYLE: Showed various demo aids in clinic from canal through GERA style; prefers RICs. BATTERY TYPE: Discussed rechargeable vs disposable batteries; Pepperell prefers rechargeable. COLOR: Silver to match. CONNECTIVITY: has an Android device and is interested in Bluetooth Connectivity. MATRIX: 3M chosen based on audiometric threshold. After discussion, Pepperell and clinician chose: PHONAK AUDEO L90-RL GERA in silver with 3M canal lock c-shells. RECOMMENDATIONS: 1. HAF sched. Program as [automatic - VC - New User - Android] /chante/ JUAN A TITUS Staff Telephone AnswererMUNDO, CCC-A Signed: 06/26/2024 08:11 07/04/2024 ADDENDUM STATUS: COMPLETED Hearing aids certified in [place] & prepped for HAF. /gloria TITUS Staff Telephone AnswererMUNDO, CCC-A Signed: 07/04/2024 10:28 JUAN A ARREOLA [facility]
--- OUTSIDE RECORDS SUMMARY | 2025-01-06 16:00 | XMS_ITS | Encounter Summary ---
Author Organization [facility] Address [facility] [place] [address] Care Team Providers Care Broomcorn Scraper Name Role Phone Domo Degroot MD Unavailable Angel Jane MD Unavailable [phone] Yinka Ivy MD, Angel Huerta Primary Care Pro vider Reason for Visit * Reason Onset Date Comments Question 01/05/2025 Encounter Details Date Type Department Care Team (Late st Contact Info) Description 01/05/[address] [address] Neelima Yuan, RN Question Social History Tobacco Use Types Packs/Day Years Used Date Smoking Tobacco: Never Smokeless Tobacco: Never Alcohol Use Standard Drinks/Week Comments Not Currently 0 (1 standard drink = 0.6 oz [...] Assessment Author Status No 11/15/2018 10:48 AM GERIATRIC NURSE ASSISTANT Acti ve * RETIRED Are you blind or do you have serious difficulty seeing, even when wearing glasses? Answer Date of Assessment Author Status No 11/15/2018 10:48 AM JAMIE Acti ve * Do you have serious [...] Serrano RN Active documented in this encounter Progress Notes * Neelima Yuan RN - 01/05/2025 2:32 PM CDT Pt called and states instructions on his isosorbide state to not take with acetaminophen, says has chronic shoulder pain and needs to know what is safe to take OTC for pain, along with his other cardiac meds as well. Ariana Yuan R.N. Pt notified of the below per Rafaela Murillo, pt verbalizes understanding and has no further questions. Ariana Yuan R.N. documented in this encounter Plan of Treatment Upcoming Encounters Date Type Department Care Team (Late st Contact Info) Description 01/27/2025 7:15 AM CDT Appointment [facility] Nuclear Medicine [address] [place], [place] [id number] Domo Degroot MD Three [facility]. [facility] [address] [place], [place] [id number] 01/27/2025 8:30 AM CDT Office Visit [facility] THREE [facility], [facility] [address] [place] [address] Domo Degroot MD Three [facility]. [facility] [address] [place] [address] 03/02/2025 11:25 AM CDT Allied Health/Nurse Visit [facility] THREE [facility], [place] [address] [place] [address] Domo Degroot MD [facility]. [facility] [address] [place], [place] [address] 06/09/2025 11:30 AM CDT Office Visit [facility] THREE [facility], [facility] [address] [place], [place] [address] Rafaela Dinh, ANP-[facility]. [facility] [address] [place], [place] [id number] documented as of this encounter Visit Diagnoses Not on filedocumented in this encounter Care Teams Broomcorn Scraper Relationship Specialty Start Date End Date Angel Honeycutt Jr., MD [address] [place] [id number] PCP - General HOSPITALIST 07/23/22 Domo Degroot MD [facility]. [facility] [address] [place], [place] [address] [place] Guest Experience Manager INTERVENTIONAL CARDIOLOGY 10/04/18 Angel Jane MD [facility]. [place] [address] [place], [place] [phone] EP Guest Experience Manager CARDIOVASCULAR DISEASE 10/24/18 documented as of this encounter
--- OUTSIDE RECORDS SUMMARY | 2025-01-06 16:00 | XMS_ITS | Encounter Summary ---
Author Organization [facility] Address [address] [place] [address] Care Team Providers Care Market Research Executive Name Role Phone Unavailable Primary Care Provider Unavailabl e Encounter Details Date Type Department Care Team (Late st Contact Info) Description 01/06/2025 3:45 PM CDT Office Visit [facility] Oncology and Hematology - [place] [address] [facility] [address] [place] [address] Nick Xie MD [address] [facility] [address] [place] [address] Erythrocytosis (Primary Dx) Social History Tobacco Use Types Packs/Day Years Used Date Smoking Tobacco: Never Smokeless Tobacco: Never Tobacco Cessation:Counseling Given: Not Answered Alcohol Use Standard Drinks/Week Comments Never 0 (1 standard drink = 0.6 oz pur e alcohol) Sex and Gender Information Value Date Recorded Sex Assigned at Not on file 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 Gender Identity Not on file Sexual Orientation Not on file documented as of this encounter Last Filed Vital Signs Vital Sign Reading Time Taken Comments Blood Pressure 128/76 01/06/2025 3:06 PM CDT Pulse 71 01/06/2025 3:06 PM CDT Temperature 35.3 C (95.5 F) 01/06/2025 3:06 PM CDT Respiratory Rate 16 01/06/2025 3:06 PM CDT Oxygen Saturation 95% 01/06/2025 3:06 PM CDT Inhaled Oxygen Concentration - - Weight 188.4 kg (415 lb 6.4 oz) 01/06/2025 3:06 PM CDT Height - - Body Mass Index 54.81 05/03/2022 1:16 PM CDT documented in this encounter Plan of Treatment Upcoming Encounters Date Type Department Care Team (Late st Contact Info) Description 04/08/2025 1:00 PM CDT Office Visit [facility] Oncology and Hematology - [place] [address] [facility] [address] [place] [address] Nick Xie MD [address] [facility] [address] [place] [address] Scheduled Orders Name Type Priority Associated Diagnoses Orde r Schedule CBC WITHOUT DIFFERENTIAL Lab Stat Erythrocytosis Expected: 03/31/2025, Expires: 01/06/2026 documented as of this encounter Visit Diagnoses Diagnosis Erythrocytosis- Primary Reserved for inherently not codable concepts WITHOUT codable children documented in this encounter
--- OUTSIDE RECORDS SUMMARY | 2025-01-06 16:00 | XMS_ITS | Clinical Summary ---
Author Organization [facility] Address [facility] [place] [address] Care Team Providers Care Counter Roller Name Role Phone Domo Degroot MD Unavailable Angel Jane MD Unavailable [phone] Yinka Ivy MD, Angel Huerta Primary Care Pro vider Allergies Active Allergy Reactions Criticality Noted Date Comments Cephalexin Rash Medium 06/30/2021 Erythromycin Rash,Nausea Only,Nausea and Vomiting,Vomiting Low 03/03/2016 Penicillins Syncope,Anaphylaxis High 03/03/2016 Loss of consciousness Sulfa Antibiotics Rash,Hives,Swelling High 7 Tape Rash Medium 12/23/2018 Medications aspirin 81 MG tablet Take 1 tablet (81 mg total) by mouth daily. 04/28/2013 Active citalopram (CELEXA) 20 MG tablet Take 1 tablet (20 mg total) by mouth daily. 04/28/2013 Active Lutein 6 MG Tab Take 1 tablet by mouth daily. 04/28/2013 Active Cetirizine HCl 10 MG Cap Take 1 tablet by mouth daily. 04/28/2013 Active pantoprazole 40 MG tablet Take 1 tablet (40 mg total) by mouth 2 (two) times daily. 05/08/2017 Active dicyclomine (BENTYL) 10 MG capsule Take 1 capsule (10 mg total) by mouth 2 (two) times a day. 07/17/2017 Active vitamin D3, cholecalciferol, 1000 UNIT Tab tablet 1 tablet (25 mcg total) daily. 09/28/2021 Active losartan-hydroCH LOROthiazide 100-25 MG tablet Take 1 tablet by mouth daily. 90 tablet 3 10/31/2021 Active fenofibrate 54 MG tablet Take 1 tablet (54 mg total) by mouth daily. 90 tablet 3 10/31/2021 Active simvastatin 20 MG tablet Take 1 tablet (20 mg total) by mouth daily. 90 tablet 3 10/31/2021 Active SYNTHROID 100 MCG tablet Take 1 tablet (100 mcg total) by mouth daily. 02/02/2022 Active JATENZO 237 MG Cap Take 1 tablet by mouth 2 (two) times a day. 11/27/2022 Active rOPINIRole (REQUIP) 2 MG tablet Take 1 tablet (2 mg total) by mouth daily. 10/05/2022 Active Iron, Ferrous Sulfate, 325 (65 Fe) MG Tab Take 325 mg by mouth daily. 12/18/2022 Active gabapentin (NEURONTIN) 300 MG capsule Take 1 capsule (300 mg total) by mouth daily. 12/18/2022 Active metoprolol succinate ER (TOPROL-XL) 50 MG 24 hr tablet Take 1 tablet (50 mg total) by mouth daily. 90 tablet 3 03/14/2023 Active tirzepatide (MOUNJARO) 10 MG/0.5ML injection once a week. 03/18/2024 Active hydrOXYzine (ATARAX) 25 MG tablet Take 1 tablet (25 mg total) by mouth every 4 (four) hours as needed. 10/29/2024 Active NASAL RELIEF 0.05 % nasal spray 2 sprays by Nasal route 2 (two) times daily. 10/29/2024 Active sotalol (BETAPACE) 80 MG tablet Take 1 tablet (80 mg total) by mouth 2 (two) times daily. 180 tablet 3 12/02/2024 Active isosorbide mononitrate ER (IMDUR) 30 MG 24 hr tablet Take 1 tablet (30 mg total) by mouth daily. 90 tablet 12/02/2024 Active Active Problems Problem Noted Date Diagnosed Date DM2 (diabetes mellitus, type 2) ([facility]/HCC ) 05/03/2022 Overview (05/03/2022): Last Assessment & Plan: ha1c creeping up. But still well controlled Need diabetic eye exam Foot exam next appt Lower extremity edema 06/30/2021 Overview (10/31/2021): Last Assessment & Plan: Due to weight , varicose veins Two episodes of b/l cellulitis summer Advise custom made compression stockings- Hideg should be able to help with that Would like to add on lasxi to see if this helps too- faxing note to Dr. Degroot to see if he approves starting lasix in regards to pts cardiac hx BRIGIDO (obstructive sleep apnea) 2020 Overview (10/31/2021): Last Assessment & Plan: Rosemary, sees dr. harris Coronary atherosclerosis 08/24/2017 Overview (09/19/2017): mild plaquing to LAD on angiogram in 2016 Dyslipidemia Essential hypertension Cardiac pacemaker in situ Overview (10/14/2018): s/p [employer] dual chamber pacemaker implanted in 2014 for sick sinus syndrome Nonsustained ventricular tachycardia ([facility] S/HCC) Paroxysmal atrial fibrillation ([facility] HHS/HCC) Overview (10/14/2018): device detected Erythrocytosis Resolved Problems Problem Noted Date Diagnosed Date Resolved Date Hyperlipidemia 08/28/2019 10/18/2021 NSVT (nonsustained ventricul ar tachycardia) ([facility]HS/HCC) 11/15/2018 10/28/2020 Ventricular tachycardia 07/17/201709/25 Sick sinus syndrome 10/14/19 19 Encounters Date Type Department Care Team Description 01/05/2025 Telephone [facility], [address] [address] Neelima Yuan RN Question 12/02/2024 12:45 PM CDT [facility] [address] [address] Domo Degroot MD Follow Up (6 months); Atrial Fibrillation; Tachycardia; Hypertension 12/02/2024 12:15 PM CDT Allied Health/Nurse Visit [facility], [address] [address] Domo Degroot MD Pacemaker Check 12/02/2024 [facility] [address] [address] Neelima Yuan RN Follow Up Call 12/02/2024 Travel from Last 3 Months Family History Medical History Relation Comments Alcohol Abuse Father Cancer Father Heart Disease Mother [place] Mother Family history positive for coronary artery disease and sudden Other Relation Status Comments Father Mother Other Social History Tobacco Use Types Packs/Day Years Used Date Smoking Tobacco: Never Smokeless Tobacco: Never Tobacco Cessation:Counseling Given: Not Answered Alcohol Use Standard Drinks/Week Comments Not Currently [...] file Not on file Not on file Last Filed Vital Signs Vital Sign Reading Time Taken Comments Blood Pressure 142/70 12/02/2024 11:50 AM CDT Pulse 81 12/02/2024 11:50 AM CDT Temperature 36.1 C (96.9 F) 07/23/2022 5:54 PM CDT Respiratory Rate 29 11/23/2023 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 Nuclear Medicine [address] [facility] [place] [address] Domo Degroot MD [facility] [address] [place], [place] [address] 01/27/2025 8:30 AM CDT Office Visit [facility] [place] [place] [address] Domo Degroot MD Three [facility]. [address] [place], [place] [address] 03/02/2025 11:25 AM CDT Allied Health/Nurse Visit [facility] [place] [place] [address] Domo Degroot MD Three [facility]. [address] [place], [place] [address] 06/09/2025 11:30 AM CDT Office Visit [facility] [address] [place], [place] [phone] Rafaela Dinh, ANP-BC Three [facility]. [address] [place], [place] [address] Health Maintenance Due Date Last Done Comments ASCVD Statin 1955 Colorectal Cancer Screening Colonoscopy (10 Years) 1955 Kidney Health Evaluation 1955 Diabetes: Retinopathy Eye Exam 12/13/1973 Hepatitis C 12/13/1973 RSV Immunization or 60+ Years (1 - Risk 60-74 years 1-dose series) 2015 Annual Medicare Wellness Visit 12/13/2020 ASC[facility] LDL 05/21/2021 05/21/2020, 05/2019, 09/05/2017, Additional history exists Lipid Panel 06/16/2022 06/16/2021, 04/25, 09/01/2019, Additional history exists Hemoglobin A1C 02/11/2024 08/13/2023, 02/2022, 07/30/2020, Additional history exists COVID-19 Vaccine ( season) 2024 08/12/2021, 12/12/2020, 11/21/2020 DTaP, Tdap and Td Vaccines (3 - Td or Tdap) 12/04/2027 12/03/2017, 07/02/2007, 01/28/1996 Zoster Vaccines Completed 10/14/2020, 11/23, 08/02/2016 Pneumococcal Vaccine: 50+ Years Completed 02/08/2023, 07/18/2011 Meningococcal B Vaccine Aged Out No l onger eligible based on patient's age to complete this topic Meningococcal Vaccine Aged Out No edwige jackie eligible based on patient's age to complete this topic RSV Immunizations Under 20 Months Aged Out No longer eligible based on patient's age to complete this topic Medical Devices Implanted Type Area Computer Builder Device Identifier Shelf Expiration Date Model / Serial / Lot Atrial Lead Implant- 008 Implanted:11/22 (Quantity not on file) Lead Implant [employer] [id number] / [id number] / Rv Lead Implant- 008 Implanted:11/22 (Quantity not on file) Lead Implant [employer] [id number] / [id number] / Pacemaker [employer] Accolade Mri Dr-11/23/2023 Implanted:Qty: 1 on 11/23/2023 by Domo Degroot MD Pacemaker [employer] N[employer] [id number] 04/11/2025 [id number] / [id number] / Explanted Type Area Computer Builder Device Identifier Shelf Expiration Date Model / Serial / Lot [id number]/ 6/2015 Implanted:11/27 (Quantity not on file) Explanted:Qty: 1 on 11/23/2023 by Domo Degroot MD Pacemaker Procedures Procedure Name Priority Date/Time Associated Diagnosis Comments HEMOGLOBIN, GLYCOSYLATED Routine 07/30/2020 LIPID PANEL Routine 05/21/2020 from Last 3 Months or Most Recently Relevant to Health Maintenance Results * HEMOGLOBIN, GLYCOSYLATED (07/30/2020) HGB A1C 5.5 % 07/30/2020 us Doc [facility] Final Result * LIPID PANEL (05/21/2020) CHOLESTEROL 130 HDL 32 TRIGLYCERIDES 206 LDL (CALCULATED) 66 05/21/2020 us Doc [facility] Final Result from Last 3 Months or Most Recently Relevant to Health Maintenance Insurance MEDICARE [facility] [employer] Advance Directives * Full Code (Latest Code Status on File) Date Activated Date Inactivated Comments 11/15/2018 10:29 AM 11/17/2018 3:52 PM * Full Code Date Activated Date Inactivated Comments 09/05/2017 5:14 PM 09/05/2017 8:40 PM Care Teams Counter Roller Relationship Specialty Start Date End Date Angel Honeycutt Jr., MD [address] [place] [id number] PCP - General HOSPITALIST 07/23/22 Domo Degroot MD [address] [address] Trout Power Tool Repairer INTERVENTIONAL CARDIOLOGY 10/04/18 Angel Jane MD [address] [address] EP Power Tool Repairer CARDIOVASCULAR DISEASE 10/24/18
--- OUTSIDE RECORDS SUMMARY | 2025-01-06 16:00 | XMS_ITS | Clinical Summary ---
Author Organization [facility] Address [address] [place] [address] Care Team Providers Care Rotational Moulding Operator Name Role Phone Unavailable Primary Care Provider Unavailabl e Allergies Active Allergy Reactions Criticality Noted Date Comments Adhesive Tape-Silicones Rash Medium 12/23/2018 Cephalexin Rash Medium 06/30/2021 Erythromycin Rash,Nausea and Vomiting Low 6 Erythromycin Base Nausea and Vomiting Low 0 Penicillins Syncope High 03/03/2016 Sulfa (Sulfonamide Antibiotics) Hives,Swelling,Rash High 07/17/2017 Medications aspirin (ECOTRIN EC) 81 mg Tablet, Delayed Release (E.C.) 0 Active FreeStyle Lite Strips Strip 0 Active pantoprazole (PROTONIX) 40 mg Tablet, Delayed Release (E.C.) 0 Active citalopram (CeleXA) 20 mg tablet citalopram 20 mg tablet 9 Active cetirizine (ZyrTEC) 10 mg tablet 0 Active rOPINIRole (REQUIP) 1 mg tablet 0 Active simvastatin (ZOCOR) 20 mg tablet 0 Active sotaloL (BETAPACE) 80 mg tablet Take 80 mg by mouth every 12 hours. 9 Active Lutein 10 mg Tablet Take 25 mg by mouth. Active Levothyroxine (Tirosint) 50 mcg Capsule Tirosint 50 mcg capsule Active ferrous sulfate 325 mg (65 mg iron) tablet 3 Active tirzepatide (Mounjaro) 5 mg/0.5 mL Pen Injector Inject 10 mg by subcutaneous injection every 7 days. Active gabapentin (NEURONTIN) 300 mg capsule Take 600 mg by mouth daily at bedtime. 4 Active fenofibrate (LOFIBRA) 54 mg Take 54 mg by mouth daily. 5 04/27/20 25 Active losartan-hydroC HLOROthiazide (HYZAAR) 100-25 mg tablet Take 1 Tablet by mouth daily. 5 10/29/19 26 Active isosorbide mononitrate (IMDUR) 30 mg Extended Release 24 hour tablet Take 30 mg by mouth daily. 5 Active metoprolol succinate (TOPROL XL) 50 mg Extended Release 24 hour tablet Take 50 mg by mouth daily. 3 Active Active Problems Problem Noted Date Diagnosed Date Erythrocytosis 08/31/2020 Encounters Date Type Department Care Team Description 01/06/2025 3:45 PM CDT Office Visit [facility] Oncology and Hematology [facility] [address] [place] [address] Nick Xie MD Erythrocytosis (Primary Dx) 10/10/2024 Orders Only [facility] Oncology and Hematology [facility] [address] [place] [address] Nick Xie MD from Last 3 Months Social History Tobacco Use Types Packs/Day Years Used Date Smoking Tobacco: Never Smokeless Tobacco: Never Tobacco Cessation:Counseling Given: Not Answered Alcohol Use Standard Drinks/Week Comments Never 0 (1 standard drink = 0.6 oz pur e alcohol) Sex and Gender Information Value Date Recorded Sex Assigned at Not on file 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 Gender Identity Not on file Sexual Orientation Not on file Last Filed Vital Signs [...] 6.4 oz) 01/06/2025 3:06 PM CDT Height 185.4 cm (6' 1 ) 05/03/2022 1:16 PM CDT Body Mass Index 54.81 05/03/2022 1:16 PM CDT Plan of Treatment Upcoming Encounters Date Type Department Care Team (Late st Contact Info) Description 04/08/2025 1:00 PM CDT Office Visit [facility] Oncology and Hematology - [place] [address] [facility] [address] [place] [address] Nick Xie MD [address] [facility] [address] [place] [address] Health Maintenance Due Date Last Done Comments DIABETES ANNUAL RETINAL EXAM 12/13/1973 DIABETES MICROALBUMIN ANNUAL SCREEN 12/13/1973 LDL CHOLESTEROL ANNUAL 12/13/1973 Traditional Medicare (ACO) A nnual Wellness Visit 12/13/1974 COLORECTAL SCREENING 12/13/2000 Colorectal Cancer Screening 12/13/2000 FIT-DNA Q 3 years 12/13/2000 FIT/FOBT Q 1 year 12/13/2000 Flex Sig/CT Colonography Q 5 years 12/13/2000 RSV VACCINE (60+ or ) (1 - Risk 60-74 years 1-dose series) 2015 INFLUENZA VACCINE (#1) 2024 , 08/11/2022, 07/04/2021, Additional history exists COVID-19 Vaccine (2023-2 5 season) 2024 08/12/2021, 12/12/2020, 11/21/2020 DIABETES ANNUAL FOOT EXAM 03/18/2025 03/18/2024 DIABETES HBA1C Q 6 MONTHS 04/13/20252024, 03/18/2024, 02/13/2024, Additional history exists DTAP/TDAP/TD VACCINES (3 - T d or Tdap) 12/04/2027 12/03/2017, 07/02/2007 ZOSTER VACCINE Completed 10/14/2020, 11/23, 08/02/2016 PNEUMOCOCCAL VACCINE 50+ YEARS Completed 02/08/2023 , 07/18/2011 Insurance MEDICARE PART A AND B [place]
--- OUTSIDE RECORDS SUMMARY | 2025-01-06 16:00 | XMS_ITS | Encounter Summary ---
Author Organization [facility] Address [facility] [place] [address] Care Team Providers Care Boiler Out Name Role Phone Isaiah Carroll MD, Karishma Primary Care Provider [phone] Rafaela Dinh [facility]- Unavailable [phone] Domo Degroot MD Unavailable Angel Jane MD Unavailable [phone] Vern Brewer MD Primary Care Provider Mary Maldonado MD Primary Care Provider + Yinka Ivy MD, Michael Gerard Primary Care Pro vider Encounter Details Date Type Department Care Team (Late st Contact Info) Description 07/18/2017 Abstract [facility] AT [address] [address] Hortencia Fortune MA Social History Tobacco Use [...] on file documented as of this encounter Plan of Treatment Upcoming Encounters Date Type Department Care Team (Late st Contact Info) Description 01/27/2025 7:15 AM CDT Appointment [facility] Nuclear Medicine [facility] [place] [address] Domo Degroot MD [facility]. [address] [place], [place] [id number] 01/27/2025 8:30 AM CDT Office Visit [facility], [address] [place], [place] [address] Domo Degroot MD [facility]. [address] [place], [place] [id number] 03/02/2025 11:25 AM CDT Allied Health/Nurse Visit [facility], [address] [place], [place] [address] Domo Degroot MD [facility]. [address] [place], [place] [id number] 06/09/2025 11:30 AM CDT Office Visit [facility] [address] [place], [place] [address] Rafaela Dinh, ANP-BC [facility]. [address] [place], [place] [address] documented as of this encounter Procedures Procedure Name Priority Date/Time Associated Diagnosis Comments BASIC METABOLIC PANEL Routine 02/09/2017 LIPID PANEL Routine 02/09/2017 HEMOGLOBIN, GLYCOSYLATED Routine 02/09/2017 VITAMIN D, 25 OH Routine 10/20/2015 documented in this encounter Results * BASIC METABOLIC PANEL (02/09/2017) SODIUM S/P/B 143 POTASSIUM S/P/B 4.1 CO2 26 CHLORIDE S/P/B 106 GLUCOSE 111 mg/dL CALCIUM S/P/B 9.2 BUN 19 CREATININE S/P/B 1.09 0.7 - 1.3 EGFR AFR. AMER. 84 EGFR NON-AFR. AMER. 73 <=90 02/09/2017 [facility] LABORATORY Edited Resul t - Final * HEMOGLOBIN, GLYCOSYLATED (02/09/2017) HGB A1C 6.0 02/09/2017 [facility] LABORATORY Edited Resul t - Final * LIPID PANEL (02/09/2017) CHOLESTEROL 149 HDL 35 TRIGLYCERIDES 176 LDL (CALCULATED) 89 02/09/2017 [facility] LABORATORY Edited Resul t - Final * VITAMIN D, 25 OH (10/20/2015) VITAMIN D 25 HYDROXY S/P/B 34.4 10/20/2015 [facility] LABORATORY Edited Resul t - Final documented in this encounter Visit Diagnoses Not on filedocumented in this encounter Care Teams Boiler Out Relationship Specialty Start Date End Date Karishma Colon MD [phone] (Work) PCP - General PUBLIC RELATIONS SPECIALIST 12/26/16 09/18/19 Vern Brewer MD [address] [address] PCP - General NEPHROLOGY 09/19/19 09/23/20 Mary Mcdonald MD [address] [facility] [address] [place] [address] PCP - General HOSPITALIST 09/24/20 07/22/22 Angel Honeycutt Jr., MD [address] [place] [id number] PCP - General HOSPITALIST 07/23/22 Rafaela Dinh, [facility] [address] [address] [place] [employer] NURSE PRACTITIONER ADULT HEALTH 10/04/18 10/04/18 Domo Degroot MD [facility] [address] [address] [place] [employer] INTERVENTIONAL CARDIOLOGY 10/04/18 Angel Jane MD [address] [address] [place] [employer] CARDIOVASCULAR DISEASE 10/24/18 documented as of this encounter
== END 2025-01-06 14:52 | disposition home or self-care (01) ==
LOC: ANHLAB 14:52
PROVIDERS: Visit Provider Internal Medicine Hematology & Oncology
DX: D75.1 Secondary polycythemia (principal)
CPT/HCPCS: 36415; 85027

== ENCOUNTER 2025-04-08 12:29 | Outpatient (CLI) | payer MEDICARE, OTHER, SELFPAY ==
[2025-04-08 13:28] LABS: Hematocrit 53.3 % (42.0-52.0); Hemoglobin 17.9 g/dL (14.0-18.0); Mean Corpuscular HGB Conc 33.6 g/dl (32-36); Mean Corpuscular Hemoglobin 31.3 pg (26-34); Mean Corpuscular Volume 93.3 fl (80-100); Platelet Count Result 239 k/mm3 (150-375); Red Blood Count 5.71 M/mm3 (4.6-6.20); White Blood Count 7.6 K/mm3 (4.5-10.0)
== END 2025-04-08 12:30 | disposition home or self-care (01) ==
LOC: ANHLAB 12:29
PROVIDERS: Visit Provider Internal Medicine Hematology & Oncology
DX: D75.1 Secondary polycythemia (principal)
CPT/HCPCS: 36415; 85027